=== PATIENT | female | born 1935 | race Caucasian/White ===

== ENCOUNTER → 2017-05-27 | Outpatient (CLI) | payer MEDICARE, OTHER ==
[~2017-05-27] MED LIST: ADV250 IH; ASPI81 PO; ATOR40TA28 PO; CALC-895 PO; ERGO500013 PO; FURO40 PO; ISOS60TA4 PO; MAGN400T6 PO; METO-558 PO; MULT1TAB11 PO; NIFE90TA45 PO; OMEP10CA2 PO; POTA10TA14 PO; ROFL500T PO; SPIR25 PO; TIOT185 IH; TRIA1TAB91 PO
== END | disposition home or self-care (01) ==
LOC: RADPV 09:36
PROVIDERS: ATTEND Internal Medicine
DX: Z13.820 Encounter for screening for osteoporosis (principal); I70.0 Atherosclerosis of aorta; K44.9 Diaphragmatic hernia without obstruction or gangrene; M41.84 Other forms of scoliosis, thoracic region; M54.6 Pain in thoracic spine; M47.898 Other spondylosis, sacral and sacrococcygeal region; M43.16 Spondylolisthesis, lumbar region; M51.86 Other intervertebral disc disorders, lumbar region; M51.87 Other intervertebral disc disorders, lumbosacral region; M85.88 Other specified disorders of bone density and structure, other site
CPT/HCPCS: 71020; 72070; 72100; 77080

== ENCOUNTER 2017-08-05 13:00 | Emergency (ER) | payer MEDICARE, OTHER ==
[~2017-08-05] VITALS: Ht 162.6 cm; Wt 104.5 kg
[2017-08-05 13:13] LABS: GLUCOSE,POINT OF CARE 181 MG/DL (70-110)
[2017-08-05 14:28] LABS: BASOPHILS % (AUTO) 0.7 % (0.0-2.0); HEMATOCRIT 41.8 % (36-46); HEMOGLOBIN 14.1 g/dL (12.0-16.0); LYMPHOCYTES % (AUTO) 24.9 % (22.0-44.0); MEAN CORPUSCULAR HGB CONC 33.7 G/dL (31.0-37.0); MEAN CORPUSCULAR VOLUME 95 fL (80-100); MONOCYTES # (AUTO) 0.8 K/uL (0.1-1.0); MONOCYTES % (AUTO) 10.6 % (2.0-9.0); NEUTROPHILS # (AUTO) 4.8 K/uL (1.8-7.7); NEUTROPHILS % (AUTO) 59.8 % (40.0-70.0); PLATELET COUNT (AUTO) 291 K/uL (150-450); RED CELL DISTRIBUTION WIDTH 14.5 % (11.5-14.5)
[2017-08-05 14:30] LABS: CALCIUM, TOTAL 9.7 mg/dL (8.8-10.5); CREATININE 1.04 mg/dL (0.60-1.30)
[2017-08-05 14:48] LABS: ALBUMIN 3.7 g/dL (3.4-5.0); BILIRUBIN,TOTAL 0.6 mg/dL (0.1-1.0); TOTAL PROTEIN, SERUM 7.2 g/dL (6.4-8.2)
[2017-08-05 15:45] VITALS: BP 134/64
== END 2017-08-05 15:55 | disposition home or self-care (01) ==
LOC: EMS 13:01
DX: L03.116 Cellulitis of left lower limb (principal); E11.9 Type 2 diabetes mellitus without complications; E78.00 Pure hypercholesterolemia, unspecified; I10 Essential (primary) hypertension; Z79.82 Long term (current) use of aspirin
CPT/HCPCS: 82962; 93005; 93970; 99285

== ENCOUNTER → 2017-08-21 | Outpatient (CLI) | payer MEDICARE, OTHER | END | disposition home or self-care (01) | LOC: RADPV 09:19 | PROVIDERS: ATTEND Internal Medicine | DX: R60.0 Localized edema (principal); L03.116 Cellulitis of left lower limb | CPT/HCPCS: 93971 ==

== ENCOUNTER → 2017-08-27 | Outpatient (CLI) | payer MEDICARE, OTHER | END | disposition home or self-care (01) | LOC: RADPV 10:54 | PROVIDERS: ATTEND Internal Medicine | DX: K44.9 Diaphragmatic hernia without obstruction or gangrene (principal); I70.0 Atherosclerosis of aorta | CPT/HCPCS: 71046 ==

== ENCOUNTER → 2017-12-08 | Outpatient (CLI) | payer MEDICARE, OTHER ==
[2017-12-08 15:34] LABS: HEMOGLOBIN A1C 6.8 % (4.5-6.2)
[2017-12-08 16:03] LABS: ALBUMIN 3.7 g/dL (3.4-5.0); BILIRUBIN,TOTAL 0.8 mg/dL (0.1-1.0); CALCIUM, TOTAL 9.7 mg/dL (8.8-10.5); CHOL/HDL RATIO 3.1 (3.9-5.7); CREATININE 1.25 mg/dL (0.60-1.30); POTASSIUM 4.2 mmol/L (3.5-5.1); THYROID STIMULATING HORMONE 1.51 uIU/mL (0.36-3.74); TOTAL PROTEIN, SERUM 7.2 g/dL (6.4-8.2)
[2017-12-09 08:31] LABS: VITAMIN B12 LEVEL 907 pg/mL (211-911)
[2017-12-09 09:12] LABS: FOLATE SERUM > 24.0 ng/mL (5.4-)
== END | disposition home or self-care (01) ==
LOC: LABPV 11:49
PROVIDERS: ATTEND Internal Medicine
DX: E11.69 Type 2 diabetes mellitus with other specified complication (principal); E78.5 Hyperlipidemia, unspecified; R41.3 Other amnesia
CPT/HCPCS: 82043; 82570; 82607; 82746; 83036; 84443

== ENCOUNTER 2017-12-13 17:44 | Inpatient (IN) | payer MEDICARE, OTHER ==
[~2017-12-13] VITALS: Ht 165.1 cm; Wt 101.7 kg
[2017-12-13] MEDS ORDERED: MONT10TA21 PO (18:16)
[2017-12-13] MEDS ORDERED: FEXO-58 PO (18:16)
[2017-12-13] MEDS ORDERED: GLIP5 PO (18:16)
[2017-12-13] MEDS ORDERED: TELM40 PO (18:16)
[2017-12-13] MEDS ORDERED: ALEN70TA48 PO (18:16)
[2017-12-13 18:24] LABS: GLUCOSE,POINT OF CARE 203 MG/DL (70-110)
[2017-12-13] MEDS ORDERED: ADENOSINE 3 MG/ML 2 ML VIAL IVP ONE (18:30)
[2017-12-13] MEDS ORDERED: ASPIRIN 325 MG TABLET PO ONE (18:30)
[2017-12-13 18:31] LABS: BASOPHILS % (AUTO) 0.7 % (0.0-2.0); EOSINOPHILS % (AUTO) 6.5 % (1.0-6.0); HEMATOCRIT 40.7 % (36-46); HEMOGLOBIN 13.8 g/dL (12.0-16.0); LYMPHOCYTES # (AUTO) 4.1 K/uL (1.0-4.8); LYMPHOCYTES % (AUTO) 33.1 % (22.0-44.0); MEAN CORPUSCULAR HEMOGLOBIN 32.3 pg (26.0-34.0); MEAN CORPUSCULAR HGB CONC 33.9 G/dL (31.0-37.0); MEAN CORPUSCULAR VOLUME 95 fL (80-100); MONOCYTES # (AUTO) 1.3 K/uL (0.1-1.0); MONOCYTES % (AUTO) 10.3 % (2.0-9.0); NEUTROPHILS # (AUTO) 6.1 K/uL (1.8-7.7); NEUTROPHILS % (AUTO) 49.4 % (40.0-70.0); PLATELET COUNT (AUTO) 241 K/uL (150-450); RED BLOOD CELL COUNT(AUTO) 4.27 MIL/uL (4.00-5.20); RED CELL DISTRIBUTION WIDTH 14.7 % (11.5-14.5)
[2017-12-13 18:40] LABS: ANION GAP 11 mmol/L (8-16); CARBON DIOXIDE 21 mmol/L (22-29); CHLORIDE 105 mmol/L (98-107); CREATININE 1.18 mg/dL (0.60-1.30); GLOMERULAR FILTR. RATE CALC 44 mL/min (>60); GLUCOSE,RANDOM 197 mg/dL (70-110); POTASSIUM 4.1 mmol/L (3.5-5.1); SODIUM SERUM 137 mmol/L (136-145); UREA NITROGEN, BLOOD 18 mg/dL (7-18)
[2017-12-13 18:45] LABS: ALANINE AMINOTRANSFERASE 33 U/L (12-78); ALBUMIN 3.5 g/dL (3.4-5.0); ALKALINE PHOSPHATASE 87 U/L (46-116); ASPARTATE AMINOTRANSFERASE 23 U/L (15-37); BILIRUBIN,TOTAL 0.5 mg/dL (0.1-1.0); LIPASE 98 U/L (73-393); TOTAL PROTEIN, SERUM 7.1 g/dL (6.4-8.2)
[2017-12-13] MEDS ORDERED: SODIUM CHLORIDE 0.9% 1,000 ML IV ONE (18:45)
[2017-12-13 18:59] LABS: B-TYPE NATRIURETIC PEPTIDE 186 pg/mL (0-100)
[2017-12-13 19:55] LABS: LACTIC ACID 2.3 mmol/L (0.4-2.0)
[2017-12-13] MEDS ORDERED: ONDANSETRON HCL 4 MG/2 ML VIAL IVP PRN ×2 (20:00→20:45)
[2017-12-13] MEDS ORDERED: 0.9% SODIUM CHLORIDE 10 ML SYRINGE IVP PRN ×2 (20:00→20:45)
[2017-12-13] MEDS ORDERED: ACETAMINOPHEN 325 MG TABLET PO PRN ×2 (20:00→20:45)
[2017-12-13] MEDS ORDERED: METOPROLOL TARTRATE 50 MG TABLET PO ONE (20:00)
[2017-12-13] MEDS ORDERED: ALBUTEROL SULFATE 2.5 MG/0.5 ML NEB SOLUTION NEB PRN (20:45)
[2017-12-13] MEDS ORDERED: INSULIN LISPRO 100 UNITS/ML SQ PRN (20:45)
[2017-12-13] MEDS ORDERED: IPRATROPIUM BROMIDE 0.5 MG/2.5 ML NEB SOLUTION NEB PRN (20:45)
[2017-12-13] MEDS ORDERED: MAGNESIUM HYDROXIDE SUSPENSION 30 ML UDCUP PO PRN (20:45)
[2017-12-13] MEDS ORDERED: DEXTROSE 50%-WATER 25 GM/50 ML SYRINGE IVP PRN (20:45)
[2017-12-13] MEDS ORDERED: BISACODYL 10 MG RECTAL RECTAL SUPPOSITORY PR PRN (20:45)
[2017-12-13] MEDS ORDERED: ATORVASTATIN CALCIUM 40 MG TABLET PO SCH (21:00)
[2017-12-13] MEDS: HEPARIN SODIUM,PORCINE 5,000 UNITS/ML VIAL SQ SCH (21:19)
[2017-12-14 08:06] LABS: BASOPHILS % (AUTO) 0.7 % (0.0-2.0); EOSINOPHILS % (AUTO) 7.5 % (1.0-6.0); HEMATOCRIT 37.7 % (36-46); HEMOGLOBIN 12.9 g/dL (12.0-16.0); LYMPHOCYTES # (AUTO) 2.8 K/uL (1.0-4.8); LYMPHOCYTES % (AUTO) 35.5 % (22.0-44.0); MEAN CORPUSCULAR HEMOGLOBIN 32.3 pg (26.0-34.0); MEAN CORPUSCULAR HGB CONC 34.4 G/dL (31.0-37.0); MEAN CORPUSCULAR VOLUME 94 fL (80-100); MONOCYTES # (AUTO) 0.8 K/uL (0.1-1.0); MONOCYTES % (AUTO) 10.6 % (2.0-9.0); NEUTROPHILS # (AUTO) 3.6 K/uL (1.8-7.7); NEUTROPHILS % (AUTO) 45.7 % (40.0-70.0); PLATELET COUNT (AUTO) 221 K/uL (150-450); RED BLOOD CELL COUNT(AUTO) 4.01 MIL/uL (4.00-5.20); RED CELL DISTRIBUTION WIDTH 14.9 % (11.5-14.5)
[2017-12-14 08:09] LABS: GLUCOSE,POINT OF CARE 118 MG/DL (70-110)
[2017-12-14 08:31] LABS: HEMOGLOBIN A1C 7.2 % (4.5-6.2)
[2017-12-14 08:37] LABS: ALBUMIN 3.1 g/dL (3.4-5.0); BILIRUBIN,TOTAL 0.9 mg/dL (0.1-1.0); CALCIUM, TOTAL 8.5 mg/dL (8.8-10.5); CHOL/HDL RATIO 2.7 (3.9-5.7); CREATININE 0.95 mg/dL (0.60-1.30); FREE T4 (FREE THYROXINE) 1.12 ng/dL (0.76-1.46); MAGNESIUM 1.6 mg/dL (1.80-2.40); PHOSPHORUS 2.5 mg/dL (2.5-4.9); POTASSIUM 3.8 mmol/L (3.5-5.1); THYROID STIMULATING HORMONE 2.44 uIU/mL (0.36-3.74); TOTAL PROTEIN, SERUM 6.2 g/dL (6.4-8.2)
[2017-12-14] MEDS ORDERED: MONTELUKAST SODIUM 10 MG TABLET PO SCH (09:00)
[2017-12-14] MEDS ORDERED: TELMISARTAN 20 MG TABLET PO SCH (09:00)
[2017-12-14] MEDS ORDERED: NIFEdipine 90 MG ER TABLET PO SCH (09:00)
[2017-12-14] MEDS ORDERED: METOPROLOL SUCCINATE 50 MG ER TABLET PO SCH (09:00)
[2017-12-14] MEDS ORDERED: FEXOFENADINE HCL 60 MG TABLET PO SCH (09:00)
[2017-12-14] MEDS ORDERED: ROFLUMILAST 500 MCG TABLET PO SCH (09:00)
[2017-12-14] MEDS ORDERED: TIOTROPIUM BROMIDE 18 MCG/INH HANDIHALER [5] IH SCH (09:00)
[2017-12-14] MEDS ORDERED: ISOSORBIDE MONONITRATE 60 MG ER TABLET PO SCH (09:00)
[2017-12-14] MEDS ORDERED: ASPIRIN 81 MG CHEWABLE TABLET PO SCH (09:00)
[2017-12-14] MEDS ORDERED: MULTIVITAMINS WITH MINERALS, THERAPEUTIC TABLET PO SCH (09:00)
[2017-12-14] MEDS ORDERED: OMEP20 PO (10:44)
[2017-12-14] MEDS ORDERED: TELMISARTAN 40 MG TABLET PO SCH (10:45)
[2017-12-14 11:36] VITALS: BP 112/63
[2017-12-14] MEDS: FLUTICASONE/SALMETEROL 250 MCG-50 MCG/INH DISKUS INHALER [28] IH SCH ×2 (12:17→12:27)
[2017-12-14] MEDS: OMEPRAZOLE 20 MG CAPSULE PO SCH ×2 (12:19→12:28)
[2017-12-14] MEDS: HEPARIN SODIUM,PORCINE 5,000 UNITS/ML VIAL SQ SCH (12:20)
[2017-12-14] MEDS ORDERED: MAGNESIUM SULFATE 2 GM in DEXTROSE 5%-WATER 50 ML IV PRN (13:15)
[2017-12-14] MEDS ORDERED: MAGNESIUM SULFATE 4 GM/WATER 100 ML IV PRN (13:15)
[2017-12-14] MEDS ORDERED: MAGNESIUM OXIDE 400 MG TABLET PO PRN (13:15)
[2017-12-15 07:59] LABS: GLUCOMETER DEV NAME(LOC) 5S 1M; GLUCOSE,POINT OF CARE 128 MG/DL (70-110)
[2017-12-20] MEDS ORDERED: ALENDRONATE SODIUM 70 MG TABLET PO SCH (06:30)
== END 2017-12-14 16:35 | disposition home or self-care (01) | DRG 309 ==
LOC: EMS 17:46 → 5S 12-14 08:39
PROVIDERS: ADMIT Internal Medicine; ATTEND Internal Medicine
DX: I47.1 Supraventricular tachycardia (principal); R65.10 Systemic inflammatory response syndrome (SIRS) of non-infectious origin without acute organ dysfunction; L03.116 Cellulitis of left lower limb; I10 Essential (primary) hypertension; E78.00 Pure hypercholesterolemia, unspecified; E11.65 Type 2 diabetes mellitus with hyperglycemia; M19.91 Primary osteoarthritis, unspecified site; E78.5 Hyperlipidemia, unspecified; I25.10 Atherosclerotic heart disease of native coronary artery without angina pectoris; J44.9 Chronic obstructive pulmonary disease, unspecified; K21.9 Gastro-esophageal reflux disease without esophagitis; M81.0 Age-related osteoporosis without current pathological fracture
CPT/HCPCS: 83036; 83605; 83735; 84100; 84145; 84439; 84443; 93005; 93306; 96374; 99291; J1644; J7030

== ENCOUNTER 2017-12-15 13:58 | Inpatient (IN) | payer MEDICARE, OTHER ==
[~2017-12-15] VITALS: Ht 165.1 cm; Wt 105.3 kg
[~2017-12-15 13:58] MED LIST changes: +ALEN70TA48 PO; -CALC-895 PO; -ERGO500013 PO; +FEXO-58 PO; -FURO40 PO; +GLIP5 PO; -ISOS60TA4 PO; -MAGN400T6 PO; +MONT10TA21 PO; -OMEP10CA2 PO; +OMEP20 PO; -POTA10TA14 PO; +TELM40 PO; -TRIA1TAB91 PO
[2017-12-15 14:26] LABS: BASOPHILS % (AUTO) 0.8 % (0.0-2.0); EOSINOPHILS % (AUTO) 5.8 % (1.0-6.0); HEMATOCRIT 41.1 % (36-46); HEMOGLOBIN 14.3 g/dL (12.0-16.0); LYMPHOCYTES # (AUTO) 2.1 K/uL (1.0-4.8); LYMPHOCYTES % (AUTO) 28.5 % (22.0-44.0); MEAN CORPUSCULAR HEMOGLOBIN 32.4 pg (26.0-34.0); MEAN CORPUSCULAR HGB CONC 34.7 G/dL (31.0-37.0); MEAN CORPUSCULAR VOLUME 94 fL (80-100); MONOCYTES # (AUTO) 0.9 K/uL (0.1-1.0); MONOCYTES % (AUTO) 11.8 % (2.0-9.0); NEUTROPHILS % (AUTO) 53.1 % (40.0-70.0); PLATELET COUNT (AUTO) 238 K/uL (150-450); RED CELL DISTRIBUTION WIDTH 14.7 % (11.5-14.5)
[2017-12-15 14:33] LABS: GLUCOSE,POINT OF CARE 181 MG/DL (70-110)
[2017-12-15 14:40] LABS: PROTHROMBIN TIME 10.4 SEC (9.4-11.6)
[2017-12-15 14:41] LABS: ANION GAP 11 mmol/L (8-16); CARBON DIOXIDE 22 mmol/L (22-29); CHLORIDE 105 mmol/L (98-107); CREATININE 0.99 mg/dL (0.60-1.30); GLOMERULAR FILTR. RATE CALC 54 mL/min (>60); GLUCOSE,RANDOM 195 mg/dL (70-110); POTASSIUM 3.7 mmol/L (3.5-5.1); SODIUM SERUM 138 mmol/L (136-145); UREA NITROGEN, BLOOD 13 mg/dL (7-18)
[2017-12-15] MEDS ORDERED: DILTIAZEM HCL 5 MG/ML 5 ML VIAL IVP ONE (14:45)
[2017-12-15] MEDS ORDERED: ASPIRIN 81 MG CHEWABLE TABLET PO ONE (14:45)
[2017-12-15] MEDS ORDERED: DILTIAZEM HCL 125 MG in DEXTROSE 5%-WATER 100 ML IV PRN (14:45)
[2017-12-15 15:05] LABS: ALANINE AMINOTRANSFERASE 34 U/L (12-78); ALBUMIN 3.3 g/dL (3.4-5.0); ALKALINE PHOSPHATASE 77 U/L (46-116); ASPARTATE AMINOTRANSFERASE 23 U/L (15-37); BILIRUBIN,TOTAL 0.8 mg/dL (0.1-1.0); CREATINE KINASE MB 0.8 ng/mL (0-5); CREATINE KINASE, TOTAL 81 U/L (26-192); TOTAL PROTEIN, SERUM 6.9 g/dL (6.4-8.2)
[2017-12-15 15:11] LABS: B-TYPE NATRIURETIC PEPTIDE 162 pg/mL (0-100)
[2017-12-15] MEDS ORDERED: DEXTROSE 50%-WATER 25 GM/50 ML SYRINGE IVP PRN (15:15)
[2017-12-15] MEDS ORDERED: MAGNESIUM HYDROXIDE SUSPENSION 30 ML UDCUP PO PRN (15:15)
[2017-12-15] MEDS ORDERED: ALBUTEROL SULFATE 2.5 MG/0.5 ML NEB SOLUTION NEB PRN (15:15)
[2017-12-15] MEDS ORDERED: INSULIN LISPRO 100 UNITS/ML SQ PRN (15:15)
[2017-12-15] MEDS ORDERED: OxyCODONE HCL/ACETAMINOPHEN 5-325 MG TABLET PO PRN (15:15)
[2017-12-15] MEDS ORDERED: MAGNESIUM SULFATE 4 GM/WATER 100 ML IV PRN (15:15)
[2017-12-15] MEDS ORDERED: POTASSIUM CHLORIDE 20 MEQ ER TABLET PO PRN (15:15)
[2017-12-15] MEDS ORDERED: ACETAMINOPHEN 325 MG TABLET PO PRN (15:15)
[2017-12-15] MEDS ORDERED: POTASSIUM CHL 10 MEQ/WATER 50 ML IV PRN (15:15)
[2017-12-15] MEDS ORDERED: MAGNESIUM SULFATE 2 GM/WATER 50 ML IV PRN (15:15)
[2017-12-15] MEDS ORDERED: SODIUM CHLORIDE 0.9% 500 ML IV ONE ×2 (15:18→15:30)
[2017-12-15] MEDS: HEPARIN SODIUM,PORCINE 5,000 UNITS/ML VIAL SQ SCH ×2 (16:13→22:48)
[2017-12-15 17:15] LABS: APPEARANCE,URINE CLOUDY (CLEAR); BILIRUBIN,URINE NEGATIVE (NEGATIVE); GLUCOSE, URINE (UA) NEGATIVE (NEGATIVE); KETONES,URINE NEGATIVE (NEGATIVE); LEUKOCYTE ESTERASE ,URINE SMALL (NEGATIVE); NITRATE,URINE NEGATIVE (NEGATIVE); OCCULT BLOOD,URINE NEGATIVE (NEGATIVE); PROTEIN,URINE NEGATIVE (NEGATIVE)
[2017-12-15] MEDS ORDERED: DILTIAZEM HCL 125 MG in DEXTROSE 5%-WATER 100 ML IV SCH (17:15)
[2017-12-15 17:24] LABS: BACTERIA,URINE Rare /HPF (None Seen); RBC,URINE 0-2 /HPF (0-2); SQUAMOUS EPITHELIAL CELL,UR Few /LPF (None Seen)
[2017-12-15] MEDS: DOCUSATE SODIUM 100 MG CAPSULE PO SCH (21:00)
[2017-12-15 21:08] LABS: GLUCOSE,POINT OF CARE 90 MG/DL (70-110)
[2017-12-15 22:31] VITALS: BP 151/74
[2017-12-15] MEDS: MAGNESIUM OXIDE 400 MG TABLET PO PRN (22:48)
[2017-12-16] VITALS (8 sets, daily range): BP systolic 138–158; BP diastolic 58–75
[2017-12-16 07:38] LABS: GLUCOMETER DEV NAME(LOC) 5N 1P; GLUCOSE,POINT OF CARE 115 MG/DL (70-110)
[2017-12-16] MEDS: HEPARIN SODIUM,PORCINE 5,000 UNITS/ML VIAL SQ SCH ×3 (08:06→23:53)
[2017-12-16] MEDS: ASPIRIN 81 MG CHEWABLE TABLET PO SCH (08:06)
[2017-12-16] MEDS: PANTOPRAZOLE SODIUM 40 MG DR TABLET PO SCH (08:06)
[2017-12-16] MEDS: DOCUSATE SODIUM 100 MG CAPSULE PO SCH ×2 (09:00→20:40)
[2017-12-16] MEDS ORDERED: SESTAMIBI TC99M/UD ISOTOPE 1 EA INJ INJ ONE ×2 (10:35→14:05)
[2017-12-16] MEDS ORDERED: REGADENOSON 0.4 MG/5 ML PF SYRINGE IVP ONE ×2 (12:00→14:15)
[2017-12-16] MEDS: METOPROLOL TARTRATE 25 MG TABLET PO SCH ×2 (17:04→20:37)
[2017-12-16] MEDS: MAGNESIUM OXIDE 400 MG TABLET PO PRN (18:15)
[2017-12-17] VITALS (14 sets, daily range): BP systolic 116–181; BP diastolic 60–84
[2017-12-17 07:28] LABS: GLUCOMETER DEV NAME(LOC) 5N 1P; GLUCOSE,POINT OF CARE 132 MG/DL (70-110)
[2017-12-17 07:28] LABS: GLUCOMETER DEV NAME(LOC) 5N 1P; GLUCOSE,POINT OF CARE 119 MG/DL (70-110)
[2017-12-17 07:28] LABS: GLUCOMETER DEV NAME(LOC) 5N 1P; GLUCOSE,POINT OF CARE 136 MG/DL (70-110)
[2017-12-17 07:28] LABS: GLUCOMETER DEV NAME(LOC) 5N 1P; GLUCOSE,POINT OF CARE 123 MG/DL (70-110)
[2017-12-17] MEDS: METOPROLOL TARTRATE 25 MG TABLET PO SCH ×2 (08:30→20:30)
[2017-12-17] MEDS: PANTOPRAZOLE SODIUM 40 MG DR TABLET PO SCH (08:30)
[2017-12-17] MEDS: HEPARIN SODIUM,PORCINE 5,000 UNITS/ML VIAL SQ SCH ×3 (08:30→23:46)
[2017-12-17] MEDS: ASPIRIN 81 MG CHEWABLE TABLET PO SCH (08:30)
[2017-12-17] MEDS: DOCUSATE SODIUM 100 MG CAPSULE PO SCH ×3 (08:30→21:00)
[2017-12-17] MEDS ORDERED: HEPARIN SODIUM 1000 UNITS/NS 1,000 ML ONE (10:41)
[2017-12-17] MEDS ORDERED: SODIUM BICARBONATE 50 MEQ/50 ML VIAL ONE (10:41)
[2017-12-17] MEDS ORDERED: IOHEXOL 300 MG/ML 150 ML VIAL ONE (10:41)
[2017-12-17] MEDS ORDERED: LIDOCAINE HCL/PF 1% 30 ML VIAL ONE (10:41)
[2017-12-17] MEDS ORDERED: FentaNYL CITRATE-PF 100 MCG/2 ML VIAL ONE (11:33)
[2017-12-17] MEDS ORDERED: MIDAZOLAM HCL 2 MG/2 ML VIAL ONE (11:33)
[2017-12-17] MEDS ORDERED: HEPARIN SODIUM 1000 UNITS/NS 1,000 ML IARTER ONE (11:36)
[2017-12-17] MEDS ORDERED: FentaNYL CITRATE-PF 100 MCG/2 ML VIAL IVP ONE (11:45)
[2017-12-17] MEDS ORDERED: LIDOCAINE 1% 30 ML/SOD BICARB 8.4% 4 ML SQ ONE (11:45)
[2017-12-17] MEDS ORDERED: IOHEXOL 300 MG/ML 150 ML VIAL IARTER ONE (11:45)
[2017-12-17] MEDS ORDERED: MIDAZOLAM HCL 2 MG/2 ML VIAL IVP ONE (11:45)
[2017-12-17] MEDS: APIXABAN 5 MG TABLET PO SCH (20:30)
[2017-12-18 00:30] VITALS: BP 155/87
[2017-12-18 04:12] VITALS: BP 152/70
[2017-12-18 07:12] VITALS: BP 155/70
[2017-12-18] MEDS ORDERED: REGADENOSON 0.4 MG/5 ML PF SYRINGE IVP ONE (07:44)
[2017-12-18] MEDS: METOPROLOL TARTRATE 25 MG TABLET PO SCH (08:01)
[2017-12-18] MEDS: ASPIRIN 81 MG CHEWABLE TABLET PO SCH (08:01)
[2017-12-18] MEDS: APIXABAN 5 MG TABLET PO SCH (08:01)
[2017-12-18] MEDS: HEPARIN SODIUM,PORCINE 5,000 UNITS/ML VIAL SQ SCH (08:01)
[2017-12-18] MEDS: PANTOPRAZOLE SODIUM 40 MG DR TABLET PO SCH (08:01)
[2017-12-18] MEDS: DOCUSATE SODIUM 100 MG CAPSULE PO SCH (08:02)
[2017-12-18 08:18] LABS: CALCIUM, TOTAL 8.7 mg/dL (8.8-10.5); CREATININE 0.98 mg/dL (0.60-1.30); POTASSIUM 3.7 mmol/L (3.5-5.1)
[2017-12-18 08:24] LABS: BASOPHILS % (AUTO) 0.9 % (0.0-2.0); EOSINOPHILS % (AUTO) 6.3 % (1.0-6.0); HEMATOCRIT 37.2 % (36-46); HEMOGLOBIN 12.7 g/dL (12.0-16.0); LYMPHOCYTES # (AUTO) 2.1 K/uL (1.0-4.8); LYMPHOCYTES % (AUTO) 26.5 % (22.0-44.0); MEAN CORPUSCULAR HEMOGLOBIN 32.3 pg (26.0-34.0); MEAN CORPUSCULAR HGB CONC 34.2 G/dL (31.0-37.0); MEAN CORPUSCULAR VOLUME 94 fL (80-100); MONOCYTES % (AUTO) 13.4 % (2.0-9.0); NEUTROPHILS # (AUTO) 4.1 K/uL (1.8-7.7); NEUTROPHILS % (AUTO) 52.9 % (40.0-70.0); PLATELET COUNT (AUTO) 228 K/uL (150-450); RED BLOOD CELL COUNT(AUTO) 3.94 MIL/uL (4.00-5.20); RED CELL DISTRIBUTION WIDTH 14.3 % (11.5-14.5)
[2017-12-18 10:18] LABS: GLUCOMETER DEV NAME(LOC) 5N 1P; GLUCOSE,POINT OF CARE 101 MG/DL (70-110)
[2017-12-18 10:19] LABS: GLUCOMETER DEV NAME(LOC) 5N 1P; GLUCOSE,POINT OF CARE 138 MG/DL (70-110)
[2017-12-18 10:19] LABS: GLUCOMETER DEV NAME(LOC) 5N 1P; GLUCOSE,POINT OF CARE 128 MG/DL (70-110)
[2017-12-18 11:55] VITALS: BP 146/63
[2017-12-18 11:59] LABS: GLUCOMETER DEV NAME(LOC) 5N 2S; GLUCOSE,POINT OF CARE 116 MG/DL (70-110)
[2017-12-19 02:44] LABS: GLUCOMETER DEV NAME(LOC) 5N 1P; GLUCOSE,POINT OF CARE 109 MG/DL (70-110)
== END 2017-12-18 12:40 | disposition home or self-care (01) | DRG 287 ==
LOC: EMS 13:59 → 5N 21:00
PROVIDERS: ADMIT Internal Medicine; ATTEND Internal Medicine
PROC: 4A023N7 Measurement of Cardiac Sampling and Pressure, Left Heart, Percutaneous Approach (ICD-10-PCS; principal; 2017-12-17)
PROC: B2111ZZ Fluoroscopy of Multiple Coronary Arteries using Low Osmolar Contrast (ICD-10-PCS; 2017-12-17)
PROC: B2151ZZ Fluoroscopy of Left Heart using Low Osmolar Contrast (ICD-10-PCS; 2017-12-17)
PROC: B41J1ZZ Fluoroscopy of Other Lower Arteries using Low Osmolar Contrast (ICD-10-PCS; 2017-12-17)
DX: I47.1 Supraventricular tachycardia (principal); I48.91 Unspecified atrial fibrillation; I25.119 Atherosclerotic heart disease of native coronary artery with unspecified angina pectoris; I49.5 Sick sinus syndrome; E66.9 Obesity, unspecified; E11.9 Type 2 diabetes mellitus without complications; I10 Essential (primary) hypertension; E78.5 Hyperlipidemia, unspecified; K21.9 Gastro-esophageal reflux disease without esophagitis; M19.90 Unspecified osteoarthritis, unspecified site; E78.00 Pure hypercholesterolemia, unspecified; J45.909 Unspecified asthma, uncomplicated; Z79.82 Long term (current) use of aspirin; Z68.38 Body mass index [BMI] 38.0-38.9, adult
CPT/HCPCS: 78452; 83735; 87081; 87086; 93005; 93017; 99291; A9500; J1644; J2250; J2785; J3010; J3490; J7040; J7060; Q9967

== ENCOUNTER 2017-12-22 08:49 | Inpatient (IN) | payer MEDICARE, OTHER ==
[~2017-12-22] VITALS: Ht 165.1 cm; Wt 100.5 kg
[~2017-12-22 08:49] MED LIST changes: -ALEN70TA48 PO; -ASPI81 PO; -FEXO-58 PO; -METO-558 PO; -MONT10TA21 PO; -NIFE90TA45 PO; -SPIR25 PO; -TELM40 PO
[2017-12-22] MEDS ORDERED: METO25 PO (09:04)
[2017-12-22] MEDS ORDERED: ADV250 IH (09:04)
[2017-12-22] MEDS ORDERED: APIX5TAB PO (09:04)
[2017-12-22] MEDS ORDERED: DILTIAZEM HCL 5 MG/ML 5 ML VIAL IVP ONE (09:15)
[2017-12-22 09:19] LABS: BASOPHILS % (AUTO) 0.6 % (0.0-2.0); EOSINOPHILS % (AUTO) 4.2 % (1.0-6.0); HEMATOCRIT 41.2 % (36-46); LYMPHOCYTES % (AUTO) 22.9 % (22.0-44.0); MEAN CORPUSCULAR VOLUME 94 fL (80-100); MONOCYTES % (AUTO) 11.5 % (2.0-9.0); NEUTROPHILS # (AUTO) 5.2 K/uL (1.8-7.7); NEUTROPHILS % (AUTO) 60.8 % (40.0-70.0); PLATELET COUNT (AUTO) 258 K/uL (150-450); RED BLOOD CELL COUNT(AUTO) 4.37 MIL/uL (4.00-5.20); RED CELL DISTRIBUTION WIDTH 14.7 % (11.5-14.5)
[2017-12-22 09:24] LABS: GLUCOSE,POINT OF CARE 115 MG/DL (70-110)
[2017-12-22 09:30] LABS: INR 1.1 (0.9-1.1); PROTHROMBIN TIME 11.4 SEC (9.4-11.6)
[2017-12-22] MEDS ORDERED: DILTIAZEM HCL 125 MG in DEXTROSE 5%-WATER 100 ML IV PRN (09:30)
[2017-12-22 09:39] LABS: B-TYPE NATRIURETIC PEPTIDE 90 pg/mL (0-100)
[2017-12-22 10:30] LABS: APPEARANCE,URINE CLEAR (CLEAR); BILIRUBIN,URINE NEGATIVE (NEGATIVE); GLUCOSE, URINE (UA) NEGATIVE (NEGATIVE); KETONES,URINE TRACE mg/dL (NEGATIVE); LEUKOCYTE ESTERASE ,URINE SMALL (NEGATIVE); NITRATE,URINE NEGATIVE (NEGATIVE); OCCULT BLOOD,URINE TRACE (NEGATIVE); PROTEIN,URINE NEGATIVE (NEGATIVE); UROBILINOGEN,URINE 0.2 mg/dL (<=1.0)
[2017-12-22 10:37] LABS: ANION GAP 16 mmol/L (8-16); CALCIUM, TOTAL 9.2 mg/dL (8.8-10.5); CARBON DIOXIDE 19 mmol/L (22-29); CHLORIDE 107 mmol/L (98-107); CREATININE 1.02 mg/dL (0.60-1.30); GLOMERULAR FILTR. RATE CALC 52 mL/min (>60); GLUCOSE,RANDOM 124 mg/dL (70-110); POTASSIUM 3.5 mmol/L (3.5-5.1); SODIUM SERUM 142 mmol/L (136-145); UREA NITROGEN, BLOOD 19 mg/dL (7-18)
[2017-12-22 10:58] LABS: RBC,URINE 0-2 /HPF (0-2)
[2017-12-22 10:59] LABS: BACTERIA,URINE Rare /HPF (None Seen); SQUAMOUS EPITHELIAL CELL,UR Moderate /LPF (None Seen)
[2017-12-22 11:03] LABS: ALANINE AMINOTRANSFERASE 40 U/L (12-78); ALBUMIN 3.6 g/dL (3.4-5.0); ALKALINE PHOSPHATASE 74 U/L (46-116); ASPARTATE AMINOTRANSFERASE 27 U/L (15-37); CREATINE KINASE MB 1.1 ng/mL (0-5); CREATINE KINASE, TOTAL 81 U/L (26-192)
[2017-12-22] MEDS ORDERED: DIGOXIN 250 MCG/ML 2 ML AMP IVP ONE ×2 (11:15→11:30)
[2017-12-22] MEDS ORDERED: ASPIRIN 81 MG CHEWABLE TABLET PO ONE (11:30)
[2017-12-22] MEDS ORDERED: 0.9% SODIUM CHLORIDE 10 ML SYRINGE IVP PRN (13:15)
[2017-12-22] MEDS ORDERED: ACETAMINOPHEN 325 MG TABLET PO PRN (13:15)
[2017-12-22 16:14] VITALS: BP 153/68
[2017-12-22] MEDS ORDERED: DEXTROSE 50%-WATER 25 GM/50 ML SYRINGE IVP PRN (17:15)
[2017-12-22] MEDS ORDERED: INSULIN LISPRO 100 UNITS/ML SQ PRN (17:15)
[2017-12-22 19:52] VITALS: BP 143/54
[2017-12-22] MEDS: APIXABAN 5 MG TABLET PO SCH (20:02)
[2017-12-22] MEDS: AMIODARONE HCL 200 MG TABLET PO SCH (20:02)
[2017-12-22] MEDS: METOPROLOL TARTRATE 25 MG TABLET PO SCH (20:03)
[2017-12-22] MEDS: OMEPRAZOLE 20 MG CAPSULE PO SCH (20:03)
[2017-12-22] MEDS: ATORVASTATIN CALCIUM 40 MG TABLET PO SCH (20:03)
[2017-12-23] VITALS (7 sets, daily range): BP systolic 139–147; BP diastolic 60–72
[2017-12-23 06:14] LABS: BASOPHILS % (AUTO) 0.6 % (0.0-2.0); HEMATOCRIT 38.9 % (36-46); HEMOGLOBIN 13.4 g/dL (12.0-16.0); LYMPHOCYTES # (AUTO) 2.3 K/uL (1.0-4.8); MEAN CORPUSCULAR HEMOGLOBIN 32.6 pg (26.0-34.0); MEAN CORPUSCULAR HGB CONC 34.5 G/dL (31.0-37.0); MEAN CORPUSCULAR VOLUME 94 fL (80-100); MONOCYTES % (AUTO) 11.6 % (2.0-9.0); NEUTROPHILS # (AUTO) 5.1 K/uL (1.8-7.7); NEUTROPHILS % (AUTO) 56.8 % (40.0-70.0); PLATELET COUNT (AUTO) 274 K/uL (150-450); RED BLOOD CELL COUNT(AUTO) 4.12 MIL/uL (4.00-5.20); RED CELL DISTRIBUTION WIDTH 14.9 % (11.5-14.5)
[2017-12-23 06:25] LABS: ALBUMIN 3.3 g/dL (3.4-5.0); BILIRUBIN,TOTAL 1.1 mg/dL (0.1-1.0); CALCIUM, TOTAL 8.5 mg/dL (8.8-10.5); CREATININE 0.95 mg/dL (0.60-1.30); POTASSIUM 3.7 mmol/L (3.5-5.1); TOTAL PROTEIN, SERUM 6.4 g/dL (6.4-8.2)
[2017-12-23] MEDS ORDERED: GlipiZIDE 5 MG TABLET PO SCH (06:30)
[2017-12-23] MEDS: METOPROLOL TARTRATE 25 MG TABLET PO SCH ×2 (07:40→20:10)
[2017-12-23] MEDS: OMEPRAZOLE 20 MG CAPSULE PO SCH ×2 (07:40→20:10)
[2017-12-23] MEDS: APIXABAN 5 MG TABLET PO SCH ×2 (07:41→20:10)
[2017-12-23] MEDS: TIOTROPIUM BROMIDE 18 MCG/INH HANDIHALER [5] IH SCH (07:41)
[2017-12-23] MEDS: ROFLUMILAST 500 MCG TABLET PO SCH (07:41)
[2017-12-23] MEDS: AMIODARONE HCL 200 MG TABLET PO SCH ×2 (07:41→20:10)
[2017-12-23] MEDS: MULTIVITAMINS WITH MINERALS, THERAPEUTIC TABLET PO SCH (07:41)
[2017-12-23 13:56] LABS: GLUCOMETER DEV NAME(LOC) 5S 2Q; GLUCOSE,POINT OF CARE 96 MG/DL (70-110)
[2017-12-23 13:56] LABS: GLUCOMETER DEV NAME(LOC) 5S 2Q; GLUCOSE,POINT OF CARE 100 MG/DL (70-110)
[2017-12-23 13:57] LABS: GLUCOMETER DEV NAME(LOC) 5S 2Q; GLUCOSE,POINT OF CARE 87 MG/DL (70-110)
[2017-12-23 19:48] LABS: GLUCOMETER DEV NAME(LOC) 5S 2Q; GLUCOSE,POINT OF CARE 90 MG/DL (70-110)
[2017-12-23] MEDS: ATORVASTATIN CALCIUM 40 MG TABLET PO SCH (20:10)
[2017-12-23 20:49] LABS: GLUCOMETER DEV NAME(LOC) 5S 2Q; GLUCOSE,POINT OF CARE 138 MG/DL (70-110)
[2017-12-23 23:05] LABS: GLUCOMETER DEV NAME(LOC) 5S 1M; GLUCOSE,POINT OF CARE 99 MG/DL (70-110)
[2017-12-24 04:19] VITALS: BP 140/68
[2017-12-24 06:59] VITALS: BP 144/67
[2017-12-24] MEDS: AMIODARONE HCL 200 MG TABLET PO SCH (08:50)
[2017-12-24] MEDS: METOPROLOL TARTRATE 25 MG TABLET PO SCH (08:53)
[2017-12-24] MEDS: ROFLUMILAST 500 MCG TABLET PO SCH (08:53)
[2017-12-24] MEDS: MULTIVITAMINS WITH MINERALS, THERAPEUTIC TABLET PO SCH (08:53)
[2017-12-24] MEDS: APIXABAN 5 MG TABLET PO SCH (08:53)
[2017-12-24] MEDS: OMEPRAZOLE 20 MG CAPSULE PO SCH (08:53)
[2017-12-24] MEDS: TIOTROPIUM BROMIDE 18 MCG/INH HANDIHALER [5] IH SCH (09:09)
[2017-12-24 11:18] VITALS: BP 141/58
[2017-12-24 15:18] VITALS: BP 166/63
[2017-12-24] MEDS ORDERED: IPRATROPIUM BROMIDE 0.5 MG/2.5 ML NEB SOLUTION NEB PRN (17:30)
[2017-12-24] MEDS ORDERED: ALBUTEROL SULFATE 2.5 MG/0.5 ML NEB SOLUTION NEB PRN (17:30)
[2017-12-24] MEDS ORDERED: HYDROCODONE/ACETAMINOPHEN 5-325 MG TABLET PO PRN (17:30)
[2017-12-24] MEDS ORDERED: MAGNESIUM HYDROXIDE SUSPENSION 30 ML UDCUP PO PRN (17:30)
[2017-12-24] MEDS ORDERED: BISACODYL 10 MG RECTAL RECTAL SUPPOSITORY PR PRN (17:30)
[2017-12-24] MEDS ORDERED: MORPHINE SULFATE 2 MG/ML SYRINGE IVP PRN (17:30)
[2017-12-24] MEDS ORDERED: ZOLPIDEM TARTRATE 5 MG TABLET PO PRN (17:30)
[2017-12-24] MEDS ORDERED: ACETAMINOPHEN 325 MG TABLET PO PRN (17:30)
[2017-12-24] MEDS ORDERED: ONDANSETRON HCL 4 MG/2 ML VIAL IVP PRN (17:30)
[2017-12-24] MEDS ORDERED: AMIO200T44 PO (18:14)
[2017-12-24 19:34] LABS: GLUCOMETER DEV NAME(LOC) 5S 2Q; GLUCOSE,POINT OF CARE 99 MG/DL (70-110)
[2017-12-24] MEDS ORDERED: DOCUSATE SODIUM 100 MG CAPSULE PO SCH (21:00)
[2017-12-24 22:04] LABS: GLUCOMETER DEV NAME(LOC) 5S 1M; GLUCOSE,POINT OF CARE 104 MG/DL (70-110)
[2017-12-24 22:05] LABS: GLUCOMETER DEV NAME(LOC) 5N 1P; GLUCOSE,POINT OF CARE 121 MG/DL (70-110)
[2017-12-25] MEDS ORDERED: PANTOPRAZOLE SODIUM 40 MG/VIAL IVP SCH (09:00)
== END 2017-12-24 18:55 | disposition home or self-care (01) | DRG 310 ==
LOC: EMS 08:51 → 5S 15:27
PROVIDERS: ADMIT Hospitalist; ATTEND Hospitalist
DX: I48.91 Unspecified atrial fibrillation (principal); I10 Essential (primary) hypertension; E78.5 Hyperlipidemia, unspecified; I47.1 Supraventricular tachycardia; E78.00 Pure hypercholesterolemia, unspecified; M19.90 Unspecified osteoarthritis, unspecified site; E11.9 Type 2 diabetes mellitus without complications; Z83.3 Family history of diabetes mellitus; Z82.49 Family history of ischemic heart disease and other diseases of the circulatory system; Z79.82 Long term (current) use of aspirin; Z79.899 Other long term (current) drug therapy; Z79.84 Long term (current) use of oral hypoglycemic drugs; Z79.01 Long term (current) use of anticoagulants
CPT/HCPCS: 13122; 87081; 87086; 93005; 96365; 99291; J1160; J3490; J7060

== ENCOUNTER 2017-12-24 23:26 | Emergency (ER) | payer MEDICARE, OTHER ==
[~2017-12-24] VITALS: Ht 165.1 cm; Wt 97.7 kg
[~2017-12-24 23:26] MED LIST changes: +AMIO200T44 PO; +APIX5TAB PO; +METO25 PO
[2017-12-24 23:43] LABS: GLUCOSE,POINT OF CARE 146 MG/DL (70-110)
[2017-12-25 00:08] LABS: BASOPHILS % (AUTO) 0.8 % (0.0-2.0); EOSINOPHILS % (AUTO) 2.5 % (1.0-6.0); HEMATOCRIT 41.6 % (36-46); HEMOGLOBIN 13.9 g/dL (12.0-16.0); MEAN CORPUSCULAR HEMOGLOBIN 31.8 pg (26.0-34.0); MEAN CORPUSCULAR HGB CONC 33.5 G/dL (31.0-37.0); MEAN CORPUSCULAR VOLUME 95 fL (80-100); MONOCYTES # (AUTO) 1.2 K/uL (0.1-1.0); MONOCYTES % (AUTO) 11.2 % (2.0-9.0); NEUTROPHILS # (AUTO) 6.6 K/uL (1.8-7.7); NEUTROPHILS % (AUTO) 58.5 % (40.0-70.0); PLATELET COUNT (AUTO) 310 K/uL (150-450); RED BLOOD CELL COUNT(AUTO) 4.39 MIL/uL (4.00-5.20); RED CELL DISTRIBUTION WIDTH 14.7 % (11.5-14.5)
[2017-12-25 00:16] LABS: ANION GAP 11 mmol/L (8-16); CALCIUM, TOTAL 9.6 mg/dL (8.8-10.5); CARBON DIOXIDE 22 mmol/L (22-29); CHLORIDE 105 mmol/L (98-107); CREATININE 1.39 mg/dL (0.60-1.30); GLOMERULAR FILTR. RATE CALC 36 mL/min (>60); GLUCOSE,RANDOM 146 mg/dL (70-110); POTASSIUM 3.6 mmol/L (3.5-5.1); SODIUM SERUM 138 mmol/L (136-145); UREA NITROGEN, BLOOD 24 mg/dL (7-18)
[2017-12-25 00:37] LABS: B-TYPE NATRIURETIC PEPTIDE 83 pg/mL (0-100)
[2017-12-25 00:41] LABS: ALANINE AMINOTRANSFERASE 40 U/L (12-78); ALBUMIN 3.7 g/dL (3.4-5.0); ALKALINE PHOSPHATASE 72 U/L (46-116); ASPARTATE AMINOTRANSFERASE 29 U/L (15-37); BILIRUBIN,TOTAL 0.8 mg/dL (0.1-1.0); CREATINE KINASE MB 1.9 ng/mL (0-5); CREATINE KINASE, TOTAL 136 U/L (26-192); TOTAL PROTEIN, SERUM 7.1 g/dL (6.4-8.2)
[2017-12-25 03:44] VITALS: BP 125/56
== END 2017-12-25 03:46 | disposition home or self-care (01) ==
LOC: EMS 23:27
DX: I48.91 Unspecified atrial fibrillation (principal); I10 Essential (primary) hypertension; E78.00 Pure hypercholesterolemia, unspecified; E11.9 Type 2 diabetes mellitus without complications
CPT/HCPCS: 93005; 99285

== ENCOUNTER 2018-01-01 10:42 | Inpatient (IN) | payer MEDICARE, OTHER ==
[~2018-01-01] VITALS: Ht 165.1 cm; Wt 98.4 kg
[2018-01-01 10:58] LABS: GLUCOSE,POINT OF CARE 136 MG/DL (70-110)
[2018-01-01] MEDS ORDERED: SODIUM CHLORIDE 0.9% 1,000 ML IV ONE ×2 (12:00→13:30)
[2018-01-01 13:06] LABS: BASOPHILS % (AUTO) 0.6 % (0.0-2.0); EOSINOPHILS % (AUTO) 0.7 % (1.0-6.0); HEMATOCRIT 43.6 % (36-46); HEMOGLOBIN 14.7 g/dL (12.0-16.0); LYMPHOCYTES # (AUTO) 1.7 K/uL (1.0-4.8); LYMPHOCYTES % (AUTO) 19.1 % (22.0-44.0); MEAN CORPUSCULAR HEMOGLOBIN 31.9 pg (26.0-34.0); MEAN CORPUSCULAR HGB CONC 33.6 G/dL (31.0-37.0); MEAN CORPUSCULAR VOLUME 95 fL (80-100); MONOCYTES # (AUTO) 0.8 K/uL (0.1-1.0); MONOCYTES % (AUTO) 8.8 % (2.0-9.0); NEUTROPHILS # (AUTO) 6.3 K/uL (1.8-7.7); NEUTROPHILS % (AUTO) 70.8 % (40.0-70.0); PLATELET COUNT (AUTO) 283 K/uL (150-450); RED BLOOD CELL COUNT(AUTO) 4.59 MIL/uL (4.00-5.20)
[2018-01-01 13:14] LABS: APPEARANCE,URINE CLOUDY (CLEAR); GLUCOSE, URINE (UA) NEGATIVE (NEGATIVE); KETONES,URINE TRACE mg/dL (NEGATIVE); LEUKOCYTE ESTERASE ,URINE NEGATIVE (NEGATIVE); NITRATE,URINE NEGATIVE (NEGATIVE); OCCULT BLOOD,URINE NEGATIVE (NEGATIVE); PROTEIN,URINE NEGATIVE (NEGATIVE); UROBILINOGEN,URINE 0.2 mg/dL (<=1.0)
[2018-01-01 13:15] LABS: BILIRUBIN,URINE PRELIM. POSITIVE (NEGATIVE)
[2018-01-01 13:16] LABS: ANION GAP 9 mmol/L (8-16); CALCIUM, TOTAL 9.4 mg/dL (8.8-10.5); CARBON DIOXIDE 27 mmol/L (22-29); CHLORIDE 104 mmol/L (98-107); CREATININE 1.57 mg/dL (0.60-1.30); GLOMERULAR FILTR. RATE CALC 31 mL/min (>60); GLUCOSE,RANDOM 115 mg/dL (70-110); POTASSIUM 4.2 mmol/L (3.5-5.1); SODIUM SERUM 140 mmol/L (136-145); UREA NITROGEN, BLOOD 36 mg/dL (7-18)
[2018-01-01 13:21] LABS: ALANINE AMINOTRANSFERASE 34 U/L (12-78); ALBUMIN 3.4 g/dL (3.4-5.0); ALKALINE PHOSPHATASE 65 U/L (46-116); ASPARTATE AMINOTRANSFERASE 22 U/L (15-37); BILIRUBIN,TOTAL 1.1 mg/dL (0.1-1.0); CREATINE KINASE, TOTAL 56 U/L (26-192); TOTAL PROTEIN, SERUM 6.5 g/dL (6.4-8.2)
[2018-01-01 13:24] LABS: RBC,URINE 0-2 /HPF (0-2); WBC,URINE 0-2 /HPF (0-5)
[2018-01-01 13:25] LABS: BACTERIA,URINE None Seen /HPF (None Seen); MUCUS,URINE Rare LPF (None Seen); SQUAMOUS EPITHELIAL CELL,UR Few /LPF (None Seen)
[2018-01-01 13:26] LABS: AMORPHOUS SEDIMENT,UR Moderate /LPF (None Seen); HYALINE CASTS, URINE 0-2 /LPF (None Seen)
[2018-01-01] MEDS ORDERED: OxyCODONE HCL/ACETAMINOPHEN 5-325 MG TABLET PO PRN (13:30)
[2018-01-01] MEDS ORDERED: ACETAMINOPHEN 325 MG TABLET PO PRN (13:30)
[2018-01-01] MEDS ORDERED: DEXTROSE 50%-WATER 25 GM/50 ML SYRINGE IVP PRN (13:30)
[2018-01-01] MEDS ORDERED: MAGNESIUM HYDROXIDE SUSPENSION 30 ML UDCUP PO PRN (13:30)
[2018-01-01 13:51] LABS: THYROID STIMULATING HORMONE 1.82 uIU/mL (0.36-3.74)
[2018-01-01 14:55] VITALS: BP 154/72
[2018-01-01 19:48] VITALS: BP 138/89
[2018-01-01] MEDS: APIXABAN 5 MG TABLET PO SCH (20:19)
[2018-01-01] MEDS: DOCUSATE SODIUM 100 MG CAPSULE PO SCH (20:19)
[2018-01-01] MEDS: AMIODARONE HCL 200 MG TABLET PO SCH (20:19)
[2018-01-02] VITALS (7 sets, daily range): BP systolic 150–188; BP diastolic 67–85
[2018-01-02] MEDS: INSULIN LISPRO 100 UNITS/ML SQ PRN ×4 (05:00→19:47)
[2018-01-02] MEDS: AMIODARONE HCL 200 MG TABLET PO SCH ×2 (08:45→19:45)
[2018-01-02] MEDS: APIXABAN 5 MG TABLET PO SCH (08:45)
[2018-01-02] MEDS: DOCUSATE SODIUM 100 MG CAPSULE PO SCH ×3 (08:45→19:45)
[2018-01-02] MEDS: PANTOPRAZOLE SODIUM 40 MG DR TABLET PO SCH (08:45)
[2018-01-02] MEDS: AmLODIPine BESYLATE 5 MG TABLET PO SCH (10:03)
[2018-01-02] MEDS ORDERED: HydrALAZINE HCL 20 MG/ML VIAL IVP PRN (14:45)
[2018-01-02 16:05] LABS: GLUCOMETER DEV NAME(LOC) 5S 2Q; GLUCOSE,POINT OF CARE 68 MG/DL (70-110)
[2018-01-02 16:05] LABS: GLUCOMETER DEV NAME(LOC) 5S 2Q; GLUCOSE,POINT OF CARE 153 MG/DL (70-110)
[2018-01-02] MEDS ORDERED: ATORVASTATIN CALCIUM 40 MG TABLET PO SCH (21:00)
[2018-01-02] MEDS: HEPARIN SODIUM,PORCINE 5,000 UNITS/ML VIAL SQ SCH (23:53)
[2018-01-03 00:42] VITALS: BP 144/65
[2018-01-03 00:43] LABS: GLUCOMETER DEV NAME(LOC) 5N 2S; GLUCOSE,POINT OF CARE 98 MG/DL (70-110)
[2018-01-03 00:44] LABS: GLUCOMETER DEV NAME(LOC) 5N 2S; GLUCOSE,POINT OF CARE 118 MG/DL (70-110)
[2018-01-03 00:49] LABS: GLUCOMETER DEV NAME(LOC) 5S 1M; GLUCOSE,POINT OF CARE 172 MG/DL (70-110)
[2018-01-03 00:49] LABS: GLUCOMETER DEV NAME(LOC) 5N 1P; GLUCOSE,POINT OF CARE 140 MG/DL (70-110)
[2018-01-03 04:50] VITALS: BP 156/71
[2018-01-03 06:16] LABS: BASOPHILS % (AUTO) 0.6 % (0.0-2.0); EOSINOPHILS % (AUTO) 2.2 % (1.0-6.0); HEMOGLOBIN 13.4 g/dL (12.0-16.0); LYMPHOCYTES # (AUTO) 1.6 K/uL (1.0-4.8); LYMPHOCYTES % (AUTO) 19.9 % (22.0-44.0); MEAN CORPUSCULAR HEMOGLOBIN 32.2 pg (26.0-34.0); MEAN CORPUSCULAR HGB CONC 34.3 G/dL (31.0-37.0); MEAN CORPUSCULAR VOLUME 94 fL (80-100); MONOCYTES # (AUTO) 0.9 K/uL (0.1-1.0); MONOCYTES % (AUTO) 11.7 % (2.0-9.0); NEUTROPHILS # (AUTO) 5.2 K/uL (1.8-7.7); NEUTROPHILS % (AUTO) 65.6 % (40.0-70.0); PLATELET COUNT (AUTO) 239 K/uL (150-450); RED BLOOD CELL COUNT(AUTO) 4.15 MIL/uL (4.00-5.20); RED CELL DISTRIBUTION WIDTH 14.8 % (11.5-14.5)
[2018-01-03 06:48] LABS: CALCIUM, TOTAL 8.6 mg/dL (8.8-10.5); CREATININE 1.02 mg/dL (0.60-1.30); POTASSIUM 3.8 mmol/L (3.5-5.1); THYROID STIMULATING HORMONE 1.55 uIU/mL (0.36-3.74)
[2018-01-03 07:37] VITALS: BP 127/57
[2018-01-03] MEDS: HEPARIN SODIUM,PORCINE 5,000 UNITS/ML VIAL SQ SCH (08:42)
[2018-01-03] MEDS: PANTOPRAZOLE SODIUM 40 MG DR TABLET PO SCH (08:42)
[2018-01-03] MEDS: AMIODARONE HCL 200 MG TABLET PO SCH (08:43)
[2018-01-03] MEDS: AmLODIPine BESYLATE 5 MG TABLET PO SCH (08:43)
[2018-01-03] MEDS: DOCUSATE SODIUM 100 MG CAPSULE PO SCH (08:43)
[2018-01-03] MEDS ORDERED: ASPIRIN 81 MG CHEWABLE TABLET PO SCH (09:00)
[2018-01-03 10:44] LABS: GLUCOMETER DEV NAME(LOC) 5S 2Q; GLUCOSE,POINT OF CARE 94 MG/DL (70-110)
== END 2018-01-03 15:15 | disposition home or self-care (01) | DRG 947 ==
LOC: EMS 10:42 → 5S 13:41
PROVIDERS: ADMIT Internal Medicine; ATTEND Internal Medicine
DX: R53.1 Weakness (principal); G93.40 Encephalopathy, unspecified; I47.1 Supraventricular tachycardia; N17.9 Acute kidney failure, unspecified; I10 Essential (primary) hypertension; E78.5 Hyperlipidemia, unspecified; E11.9 Type 2 diabetes mellitus without complications; M19.90 Unspecified osteoarthritis, unspecified site; E78.00 Pure hypercholesterolemia, unspecified; I48.0 Paroxysmal atrial fibrillation; E66.9 Obesity, unspecified; Z86.73 Personal history of transient ischemic attack (TIA), and cerebral infarction without residual deficits; Z83.3 Family history of diabetes mellitus; Z82.49 Family history of ischemic heart disease and other diseases of the circulatory system; Z79.01 Long term (current) use of anticoagulants; Z68.36 Body mass index [BMI] 36.0-36.9, adult
CPT/HCPCS: 51702; 70450; 84443; 93005; 97161; 97530; 99285; J1644; J7030

== ENCOUNTER 2018-02-22 05:57 | Inpatient (IN) | payer MEDICARE, OTHER ==
[~2018-02-22] VITALS: Ht 167.6 cm; Wt 93.9 kg
[~2018-02-22 05:57] MED LIST changes: -AMIO200T44 PO; -APIX5TAB PO; -METO25 PO
[2018-02-22 06:09] LABS: GLUCOSE,POINT OF CARE 119 MG/DL (70-110)
[2018-02-22] MEDS ORDERED: ADV100 IH (06:10)
[2018-02-22] MEDS ORDERED: AMIO200T44 PO (06:10)
[2018-02-22] MEDS ORDERED: TELM40 PO (06:10)
[2018-02-22] MEDS ORDERED: NITROGLYCERIN 2% (1 GM=INCH) PACKET TP ONE (06:15)
[2018-02-22] MEDS ORDERED: ASPIRIN 81 MG CHEWABLE TABLET PO ONE (06:15)
[2018-02-22 08:19] LABS: BASOPHILS % (AUTO) 0.8 % (0.0-2.0); EOSINOPHILS % (AUTO) 2.3 % (1.0-6.0); HEMATOCRIT 38.5 % (36-46); HEMOGLOBIN 12.9 g/dL (12.0-16.0); LYMPHOCYTES # (AUTO) 1.4 K/uL (1.0-4.8); LYMPHOCYTES % (AUTO) 19.4 % (22.0-44.0); MEAN CORPUSCULAR HEMOGLOBIN 32.4 pg (26.0-34.0); MEAN CORPUSCULAR HGB CONC 33.5 G/dL (31.0-37.0); MEAN CORPUSCULAR VOLUME 97 fL (80-100); MONOCYTES # (AUTO) 0.9 K/uL (0.1-1.0); MONOCYTES % (AUTO) 12.2 % (2.0-9.0); NEUTROPHILS # (AUTO) 4.9 K/uL (1.8-7.7); NEUTROPHILS % (AUTO) 65.3 % (40.0-70.0); PLATELET COUNT (AUTO) 221 K/uL (150-450); RED BLOOD CELL COUNT(AUTO) 3.98 MIL/uL (4.00-5.20); RED CELL DISTRIBUTION WIDTH 15.1 % (11.5-14.5)
[2018-02-22 08:29] LABS: ANION GAP 9 mmol/L (8-16); CARBON DIOXIDE 28 mmol/L (22-29); CHLORIDE 106 mmol/L (98-107); CREATININE 0.88 mg/dL (0.60-1.30); GLUCOSE,RANDOM 120 mg/dL (70-110); POTASSIUM 3.1 mmol/L (3.5-5.1); SODIUM SERUM 143 mmol/L (136-145); UREA NITROGEN, BLOOD 6 mg/dL (7-18)
[2018-02-22 08:31] LABS: INR 1.1 (0.9-1.1); PROTHROMBIN TIME 11.1 SEC (9.4-11.6)
[2018-02-22 08:36] LABS: GLOMERULAR FILTR. RATE CALC > 60 mL/min (>60)
[2018-02-22 08:47] LABS: B-TYPE NATRIURETIC PEPTIDE 121 pg/mL (0-100)
[2018-02-22 09:00] LABS: ALANINE AMINOTRANSFERASE 29 U/L (12-78); ALBUMIN 2.9 g/dL (3.4-5.0); ALKALINE PHOSPHATASE 57 U/L (46-116); ASPARTATE AMINOTRANSFERASE 23 U/L (15-37); BILIRUBIN,TOTAL 0.9 mg/dL (0.1-1.0); CREATINE KINASE, TOTAL 88 U/L (26-192); TOTAL PROTEIN, SERUM 5.8 g/dL (6.4-8.2)
[2018-02-22 09:23] LABS: CREATINE KINASE MB 1.4 ng/mL (0-5)
[2018-02-22 10:25] LABS: APPEARANCE,URINE CLEAR (CLEAR); BILIRUBIN,URINE NEGATIVE (NEGATIVE); GLUCOSE, URINE (UA) NEGATIVE (NEGATIVE); KETONES,URINE 15 mg/dL (NEGATIVE); LEUKOCYTE ESTERASE ,URINE NEGATIVE (NEGATIVE); NITRATE,URINE NEGATIVE (NEGATIVE); OCCULT BLOOD,URINE NEGATIVE (NEGATIVE); PH,URINE 6.5 (5.0-8.0); PROTEIN,URINE NEGATIVE (NEGATIVE); UROBILINOGEN,URINE 0.2 mg/dL (<=1.0)
[2018-02-22 11:24] LABS: GLUCOSE,POINT OF CARE 117 MG/DL (70-110)
[2018-02-22 12:16] VITALS: BP 170/70
[2018-02-22] MEDS ORDERED: ZOLPIDEM TARTRATE 10 MG TABLET PO PRN (12:45)
[2018-02-22] MEDS ORDERED: ONDANSETRON HCL 4 MG/2 ML VIAL IVP PRN (12:45)
[2018-02-22] MEDS ORDERED: MAGNESIUM HYDROXIDE SUSPENSION 30 ML UDCUP PO PRN (12:45)
[2018-02-22] MEDS ORDERED: ACETAMINOPHEN 325 MG TABLET PO PRN (12:45)
[2018-02-22] MEDS ORDERED: MORPHINE SULFATE 2 MG/ML SYRINGE IVP PRN (12:45)
[2018-02-22] MEDS ORDERED: HYDROCODONE/ACETAMINOPHEN 5-325 MG TABLET PO PRN (12:45)
[2018-02-22] MEDS ORDERED: INSULIN LISPRO 100 UNITS/ML SQ PRN ×2 (13:00→21:30)
[2018-02-22] MEDS ORDERED: POTASSIUM CHLORIDE 20 MEQ ER TABLET PO PRN (13:00)
[2018-02-22] MEDS ORDERED: GLUCAGON,HUMAN RECOMBINANT 1 MG VIAL IM PRN (13:00)
[2018-02-22] MEDS ORDERED: POTASSIUM CHL 10 MEQ/WATER 50 ML IV PRN (13:00)
[2018-02-22] MEDS: CARVEDILOL 6.25 MG TABLET PO SCH ×2 (14:28→20:13)
[2018-02-22 16:24] VITALS: BP 136/77
[2018-02-22] MEDS: NITROGLYCERIN 2% (1 GM=INCH) PACKET TP SCH (17:46)
[2018-02-22 19:58] VITALS: BP 157/62
[2018-02-22] MEDS: ATORVASTATIN CALCIUM 40 MG TABLET PO SCH (20:13)
[2018-02-22] MEDS: DOCUSATE SODIUM 100 MG CAPSULE PO SCH (20:13)
[2018-02-22] MEDS ORDERED: CARVEDILOL 6.25 MG TABLET PO SCH (21:00)
[2018-02-22] MEDS ORDERED: DEXTROSE 50%-WATER 25 GM/50 ML SYG IVP PRN (21:30)
[2018-02-22 23:24] LABS: GLUCOMETER DEV NAME(LOC) 5S 2Q; GLUCOSE,POINT OF CARE 156 MG/DL (70-110)
[2018-02-22 23:24] LABS: GLUCOMETER DEV NAME(LOC) 5S 2Q; GLUCOSE,POINT OF CARE 121 MG/DL (70-110)
[2018-02-22 23:54] VITALS: BP 176/77
[2018-02-23] MEDS: NITROGLYCERIN 2% (1 GM=INCH) PACKET TP SCH ×4 (00:01→18:00)
[2018-02-23 04:27] VITALS: BP 133/69
[2018-02-23 06:32] LABS: CHOL/HDL RATIO 2.1 (3.9-5.7)
[2018-02-23] MEDS: GlipiZIDE 5 MG TABLET PO SCH (06:47)
[2018-02-23 07:25] VITALS: BP 152/72
[2018-02-23] MEDS: TIOTROPIUM BROMIDE 18 MCG/INH HANDIHALER [5] IH SCH (09:00)
[2018-02-23] MEDS: FLUTICASONE/VILANTEROL 100-25 MCG/INH INHALER [14] IH SCH (09:00)
[2018-02-23] MEDS: DOCUSATE SODIUM 100 MG CAPSULE PO SCH ×2 (09:00→20:26)
[2018-02-23] MEDS: ROFLUMILAST 500 MCG TABLET PO SCH (09:06)
[2018-02-23] MEDS: TELMISARTAN 40 MG TABLET PO SCH (09:06)
[2018-02-23] MEDS: AMIODARONE HCL 200 MG TABLET PO SCH (09:06)
[2018-02-23] MEDS: PANTOPRAZOLE SODIUM 40 MG/VIAL IVP SCH (09:06)
[2018-02-23] MEDS: ASPIRIN 81 MG CHEWABLE TABLET PO SCH (09:07)
[2018-02-23] MEDS: MULTIVITAMINS WITH MINERALS, THERAPEUTIC TABLET PO SCH (09:07)
[2018-02-23] MEDS: CARVEDILOL 6.25 MG TABLET PO SCH ×2 (09:07→20:26)
[2018-02-23 11:46] VITALS: BP 144/70
[2018-02-23] MEDS ORDERED: BARIUM SULFATE 0.1% SUSPENSION 450 ML BOTTLE ONE (15:03)
[2018-02-23] MEDS ORDERED: IOVERSOL 350 MG/ML 100 ML VIAL ONE (15:53)
[2018-02-23 16:06] VITALS: BP 165/78
[2018-02-23 19:12] VITALS: BP 149/64
[2018-02-23] MEDS: ATORVASTATIN CALCIUM 40 MG TABLET PO SCH (20:26)
[2018-02-24 00:05] VITALS: BP 149/71
[2018-02-24 04:15] VITALS: BP 151/64
[2018-02-24] MEDS: NITROGLYCERIN 2% (1 GM=INCH) PACKET TP SCH ×3 (05:58→12:00)
[2018-02-24] MEDS: GlipiZIDE 5 MG TABLET PO SCH (06:40)
[2018-02-24 07:23] VITALS: BP 157/73
[2018-02-24] MEDS: DOCUSATE SODIUM 100 MG CAPSULE PO SCH (09:00)
[2018-02-24] MEDS: FLUTICASONE/VILANTEROL 100-25 MCG/INH INHALER [14] IH SCH (09:14)
[2018-02-24] MEDS: TIOTROPIUM BROMIDE 18 MCG/INH HANDIHALER [5] IH SCH (09:15)
[2018-02-24] MEDS: PANTOPRAZOLE SODIUM 40 MG/VIAL IVP SCH (09:15)
[2018-02-24] MEDS: ROFLUMILAST 500 MCG TABLET PO SCH (09:16)
[2018-02-24] MEDS: CARVEDILOL 6.25 MG TABLET PO SCH (09:16)
[2018-02-24] MEDS: TELMISARTAN 40 MG TABLET PO SCH (09:17)
[2018-02-24] MEDS: MULTIVITAMINS WITH MINERALS, THERAPEUTIC TABLET PO SCH (09:17)
[2018-02-24] MEDS: AMIODARONE HCL 200 MG TABLET PO SCH (09:17)
[2018-02-24] MEDS: ASPIRIN 81 MG CHEWABLE TABLET PO SCH (09:19)
[2018-02-24 11:31] VITALS: BP 135/60
[2018-02-24 15:18] VITALS: BP 146/76
[2018-02-24 21:49] LABS: GLUCOMETER DEV NAME(LOC) 5N 2S; GLUCOSE,POINT OF CARE 154 MG/DL (70-110)
[2018-02-24 21:49] LABS: GLUCOMETER DEV NAME(LOC) 5N 2S; GLUCOSE,POINT OF CARE 88 MG/DL (70-110)
[2018-02-24 21:49] LABS: GLUCOMETER DEV NAME(LOC) 5N 2S; GLUCOSE,POINT OF CARE 101 MG/DL (70-110)
[2018-02-24 21:49] LABS: GLUCOMETER DEV NAME(LOC) 5N 2S; GLUCOSE,POINT OF CARE 131 MG/DL (70-110)
[2018-02-24 21:49] LABS: GLUCOMETER DEV NAME(LOC) 5N 2S; GLUCOSE,POINT OF CARE 121 MG/DL (70-110)
[2018-02-24 21:49] LABS: GLUCOMETER DEV NAME(LOC) 5N 2S; GLUCOSE,POINT OF CARE 146 MG/DL (70-110)
[2018-02-25 02:43] LABS: GLUCOMETER DEV NAME(LOC) 5S 2Q; GLUCOSE,POINT OF CARE 78 MG/DL (70-110)
== END 2018-02-24 17:15 | disposition home or self-care (01) | DRG 392 ==
LOC: EMS 05:58 → 5S 10:59
PROVIDERS: ADMIT Hospitalist; ATTEND Hospitalist
DX: K21.9 Gastro-esophageal reflux disease without esophagitis (principal); I47.1 Supraventricular tachycardia; K44.9 Diaphragmatic hernia without obstruction or gangrene; N93.9 Abnormal uterine and vaginal bleeding, unspecified; I48.91 Unspecified atrial fibrillation; E11.9 Type 2 diabetes mellitus without complications; I10 Essential (primary) hypertension; E78.5 Hyperlipidemia, unspecified; E78.00 Pure hypercholesterolemia, unspecified; M19.90 Unspecified osteoarthritis, unspecified site
CPT/HCPCS: 71260; 72193; 74160; 84132; 84443; 93005; 97116; 97162; 97530; 99285; C9113; J2405

== ENCOUNTER → 2018-03-18 | Outpatient (CLI) | payer MEDICARE, OTHER ==
[~2018-03-18] MED LIST changes: +ADV100 IH; +AMIO200T44 PO; +TELM40 PO
== END | disposition home or self-care (01) ==
LOC: RADPV 09:21
PROVIDERS: ATTEND Internal Medicine
DX: N93.8 Other specified abnormal uterine and vaginal bleeding (principal); R97.1 Elevated cancer antigen 125 [CA 125]
CPT/HCPCS: 76830; 76856

== ENCOUNTER → 2018-03-30 | Outpatient (CLI) | payer MEDICARE, OTHER ==
[2018-03-30 13:49] LABS: BASOPHILS % (AUTO) 0.6 % (0.0-2.0); EOSINOPHILS % (AUTO) 3.5 % (1.0-6.0); HEMATOCRIT 38.6 % (36-46); LYMPHOCYTES # (AUTO) 1.5 K/uL (1.0-4.8); LYMPHOCYTES % (AUTO) 21.9 % (22.0-44.0); MEAN CORPUSCULAR HGB CONC 33.6 G/dL (31.0-37.0); MEAN CORPUSCULAR VOLUME 95 fL (80-100); MONOCYTES # (AUTO) 0.8 K/uL (0.1-1.0); MONOCYTES % (AUTO) 11.1 % (2.0-9.0); NEUTROPHILS # (AUTO) 4.4 K/uL (1.8-7.7); NEUTROPHILS % (AUTO) 62.9 % (40.0-70.0); RED BLOOD CELL COUNT(AUTO) 4.05 MIL/uL (4.00-5.20); RED CELL DISTRIBUTION WIDTH 15.5 % (11.5-14.5)
[2018-03-30 14:26] LABS: PLATELET COUNT (AUTO) 223 K/uL (150-450)
== END | disposition home or self-care (01) ==
LOC: LABPV 11:01
PROVIDERS: ATTEND Internal Medicine
DX: D72.829 Elevated white blood cell count, unspecified (principal); E78.00 Pure hypercholesterolemia, unspecified; J44.9 Chronic obstructive pulmonary disease, unspecified; I10 Essential (primary) hypertension; E11.9 Type 2 diabetes mellitus without complications; M19.90 Unspecified osteoarthritis, unspecified site

== ENCOUNTER 2018-06-30 16:23 | Emergency (ER) | payer MEDICARE, OTHER ==
[~2018-06-30] VITALS: Ht 165.1 cm; Wt 92.3 kg
[2018-06-30 16:59] LABS: GLUCOSE,POINT OF CARE 191 MG/DL (70-110)
[2018-06-30 19:15] LABS: CALCIUM, TOTAL 9.5 mg/dL (8.8-10.5); CREATININE 0.92 mg/dL (0.60-1.30); POTASSIUM 3.8 mmol/L (3.5-5.1)
[2018-06-30 19:21] LABS: ALBUMIN 3.3 g/dL (3.4-5.0); BILIRUBIN,TOTAL 0.7 mg/dL (0.1-1.0); TOTAL PROTEIN, SERUM 6.6 g/dL (6.4-8.2)
[2018-06-30] MEDS ORDERED: ACETAMINOPHEN 500 MG TABLET PO ONE (19:45)
[2018-06-30 20:05] LABS: HEMATOCRIT 38.9 % (36-46); HEMOGLOBIN 13.1 g/dL (12.0-16.0); MEAN CORPUSCULAR HEMOGLOBIN 32.3 pg (26.0-34.0); MEAN CORPUSCULAR HGB CONC 33.8 G/dL (31.0-37.0); MEAN CORPUSCULAR VOLUME 96 fL (80-100); PLATELET COUNT (AUTO) 225 K/uL (150-450); RED BLOOD CELL COUNT(AUTO) 4.07 MIL/uL (4.00-5.20); RED CELL DISTRIBUTION WIDTH 15.6 % (11.5-14.5)
[2018-06-30 20:34] LABS: BAND NEUTROPHILS % (MANUAL) 0 % (0-5)
[2018-06-30 20:36] LABS: BASOPHILS % (MANUAL) 1 % (0-2); EOSINOPHILS % (MANUAL) 4 % (1-6); LYMPHOCYTES % (MANUAL) 27 % (22-44); MONOCYTES % (MANUAL) 7 % (2-9); SEGMENTED NEUTROPHILS % 61 % (40-70)
[2018-06-30 20:37] VITALS: BP 162/87
== END 2018-06-30 20:50 | disposition home or self-care (01) ==
LOC: EMS 16:24
DX: S83.91XA Sprain of unspecified site of right knee, initial encounter (principal); S20.211A Contusion of right front wall of thorax, initial encounter; S05.12XA Contusion of eyeball and orbital tissues, left eye, initial encounter; E11.65 Type 2 diabetes mellitus with hyperglycemia; I48.91 Unspecified atrial fibrillation; E78.00 Pure hypercholesterolemia, unspecified; I10 Essential (primary) hypertension; M19.90 Unspecified osteoarthritis, unspecified site; W10.8XXA Fall (on) (from) other stairs and steps, initial encounter; Y93.89 Activity, other specified; Y92.89 Other specified places as the place of occurrence of the external cause; Y99.8 Other external cause status
CPT/HCPCS: 71101

== ENCOUNTER → 2018-07-20 | Outpatient (CLI) | payer MEDICARE, OTHER ==
[2018-07-20 12:43] LABS: BASOPHILS % (AUTO) 0.4 % (0.0-2.0); EOSINOPHILS % (AUTO) 2.2 % (1.0-6.0); HEMATOCRIT 40.7 % (36-46); HEMOGLOBIN 13.6 g/dL (12.0-16.0); LYMPHOCYTES # (AUTO) 1.6 K/uL (1.0-4.8); LYMPHOCYTES % (AUTO) 20.9 % (22.0-44.0); MEAN CORPUSCULAR HEMOGLOBIN 32.3 pg (26.0-34.0); MEAN CORPUSCULAR HGB CONC 33.5 G/dL (31.0-37.0); MEAN CORPUSCULAR VOLUME 96 fL (80-100); MONOCYTES # (AUTO) 0.6 K/uL (0.1-1.0); MONOCYTES % (AUTO) 8.2 % (2.0-9.0); NEUTROPHILS # (AUTO) 5.1 K/uL (1.8-7.7); NEUTROPHILS % (AUTO) 68.3 % (40.0-70.0); PLATELET COUNT (AUTO) 203 K/uL (150-450); RED BLOOD CELL COUNT(AUTO) 4.22 MIL/uL (4.00-5.20); RED CELL DISTRIBUTION WIDTH 15.5 % (11.5-14.5)
[2018-07-20 12:58] LABS: APPEARANCE,URINE CLEAR (CLEAR); BILIRUBIN,URINE NEGATIVE (NEGATIVE); GLUCOSE, URINE (UA) NEGATIVE (NEGATIVE); KETONES,URINE NEGATIVE (NEGATIVE); LEUKOCYTE ESTERASE ,URINE TRACE (NEGATIVE); NITRATE,URINE NEGATIVE (NEGATIVE); OCCULT BLOOD,URINE NEGATIVE (NEGATIVE); PH,URINE 5.5 (5.0-8.0); PROTEIN,URINE SEE CONFIRM (NEGATIVE)
[2018-07-20 13:09] LABS: BACTERIA,URINE None Seen /HPF (None Seen); RBC,URINE None Seen /HPF (0-2); SQUAMOUS EPITHELIAL CELL,UR Few /LPF (None Seen); SULFOSALICYLIC ACID,URINE Trace (Negative)
[2018-07-20 13:33] LABS: CALCIUM, TOTAL 9.4 mg/dL (8.8-10.5); CREATININE 1.05 mg/dL (0.60-1.30)
[2018-07-20 13:34] LABS: ALBUMIN 3.3 g/dL (3.4-5.0); CHOL/HDL RATIO 2.4 (3.9-5.7); THYROID STIMULATING HORMONE 2.44 uIU/mL (0.36-3.74); TOTAL PROTEIN, SERUM 6.7 g/dL (6.4-8.2)
[2018-07-20 13:42] LABS: HEMOGLOBIN A1C 5.6 % (4.5-6.2)
== END | disposition home or self-care (01) ==
LOC: LABPV 11:57
PROVIDERS: ATTEND Internal Medicine
DX: E11.69 Type 2 diabetes mellitus with other specified complication (principal); E78.5 Hyperlipidemia, unspecified; I48.91 Unspecified atrial fibrillation; R35.0 Frequency of micturition; R63.4 Abnormal weight loss
CPT/HCPCS: 82043; 82570; 83036; 84443

== ENCOUNTER → 2019-01-11 | Outpatient (CLI) | payer MEDICARE, OTHER ==
[2019-01-11 12:30] LABS: BASOPHILS % (AUTO) 0.8 % (0.0-2.0); HEMATOCRIT 40.3 % (36-46); HEMOGLOBIN 13.1 g/dL (12.0-16.0); LYMPHOCYTES # (AUTO) 2.1 K/uL (1.0-4.8); LYMPHOCYTES % (AUTO) 41.8 % (22.0-44.0); MEAN CORPUSCULAR HEMOGLOBIN 32.6 pg (26.0-34.0); MEAN CORPUSCULAR HGB CONC 32.6 G/dL (31.0-37.0); MEAN CORPUSCULAR VOLUME 100 fL (80-100); MONOCYTES # (AUTO) 0.5 K/uL (0.1-1.0); MONOCYTES % (AUTO) 9.8 % (2.0-9.0); NEUTROPHILS # (AUTO) 2.1 K/uL (1.8-7.7); NEUTROPHILS % (AUTO) 41.6 % (40.0-70.0); PLATELET COUNT (AUTO) 180 K/uL (150-450); RED BLOOD CELL COUNT(AUTO) 4.03 MIL/uL (4.00-5.20); RED CELL DISTRIBUTION WIDTH 15.4 % (11.5-14.5)
[2019-01-11 12:47] LABS: HEMOGLOBIN A1C 5.9 % (4.5-6.2)
[2019-01-11 12:53] LABS: ALBUMIN 3.3 g/dL (3.4-5.0); CALCIUM, TOTAL 9.8 mg/dL (8.8-10.5); CHOL/HDL RATIO 2.6 (3.9-5.7); CREATININE 1.03 mg/dL (0.60-1.30); POTASSIUM 3.9 mmol/L (3.5-5.1); TOTAL PROTEIN, SERUM 6.6 g/dL (6.4-8.2)
== END | disposition home or self-care (01) ==
LOC: LABPV 10:17
PROVIDERS: ATTEND Internal Medicine
DX: E78.5 Hyperlipidemia, unspecified (principal); E11.69 Type 2 diabetes mellitus with other specified complication; Z79.899 Other long term (current) drug therapy
CPT/HCPCS: 83036

== ENCOUNTER → 2019-06-07 | Outpatient (CLI) | payer MEDICARE, OTHER ==
[2019-06-07 15:35] LABS: APPEARANCE,URINE CLEAR (CLEAR); BILIRUBIN,URINE NEGATIVE (NEGATIVE); GLUCOSE, URINE (UA) NEGATIVE (NEGATIVE); KETONES,URINE NEGATIVE (NEGATIVE); LEUKOCYTE ESTERASE ,URINE TRACE (NEGATIVE); NITRATE,URINE NEGATIVE (NEGATIVE); OCCULT BLOOD,URINE NEGATIVE (NEGATIVE); PH,URINE 5.5 (5.0-8.0); PROTEIN,URINE SEE CONFIRM (NEGATIVE); UROBILINOGEN,URINE 0.2 mg/dL (<=1.0)
[2019-06-07 15:53] LABS: SULFOSALICYLIC ACID,URINE 2+ (Negative)
[2019-06-07 15:54] LABS: BACTERIA,URINE None Seen /HPF (None Seen); RBC,URINE None Seen /HPF (0-2); SQUAMOUS EPITHELIAL CELL,UR Moderate /LPF (None Seen)
== END | disposition home or self-care (01) ==
LOC: LABMN 15:07
PROVIDERS: ATTEND Internal Medicine
DX: R30.0 Dysuria (principal); J44.9 Chronic obstructive pulmonary disease, unspecified; I10 Essential (primary) hypertension; M19.90 Unspecified osteoarthritis, unspecified site; M85.80 Other specified disorders of bone density and structure, unspecified site; E11.9 Type 2 diabetes mellitus without complications; E78.00 Pure hypercholesterolemia, unspecified

== ENCOUNTER 2019-07-22 16:25 | Emergency (ER) | payer MEDICARE, OTHER ==
[~2019-07-22] VITALS: Ht 162.6 cm; Wt 86.4 kg
[~2019-07-22 16:25] MED LIST changes: -AMIO200T44 PO; +AMIO200T67 PO
[2019-07-22] MEDS ORDERED: PANT40TA25 PO (17:07)
[2019-07-22] MEDS ORDERED: ISOS30TA6 PO (17:07)
[2019-07-22] MEDS ORDERED: CARV12 PO (17:07)
[2019-07-22] MEDS ORDERED: ASPI-728 PO (17:07)
[2019-07-22] MEDS ORDERED: ATOR40TA28 PO (17:07)
[2019-07-22] MEDS ORDERED: NIFE30TA5 PO (17:07)
[2019-07-22] MEDS ORDERED: MULT-1259 PO (17:07)
[2019-07-22] MEDS ORDERED: ROFL500T PO (17:07)
[2019-07-22 18:26] LABS: BASOPHILS % (AUTO) 0.9 % (0.0-2.0); EOSINOPHILS % (AUTO) 5.3 % (1.0-6.0); HEMATOCRIT 38.6 % (36-46); LYMPHOCYTES # (AUTO) 2.1 K/uL (1.0-4.8); LYMPHOCYTES % (AUTO) 36.8 % (22.0-44.0); MEAN CORPUSCULAR HEMOGLOBIN 32.9 pg (26.0-34.0); MEAN CORPUSCULAR HGB CONC 33.7 G/dL (31.0-37.0); MEAN CORPUSCULAR VOLUME 98 fL (80-100); MONOCYTES # (AUTO) 0.6 K/uL (0.1-1.0); MONOCYTES % (AUTO) 10.5 % (2.0-9.0); NEUTROPHILS # (AUTO) 2.6 K/uL (1.8-7.7); NEUTROPHILS % (AUTO) 46.5 % (40.0-70.0); PLATELET COUNT (AUTO) 195 K/uL (150-450); RED BLOOD CELL COUNT(AUTO) 3.96 MIL/uL (4.00-5.20); RED CELL DISTRIBUTION WIDTH 14.3 % (11.5-14.5)
[2019-07-22 18:33] LABS: ANION GAP 7 mmol/L (8-16); CALCIUM, TOTAL 9.5 mg/dL (8.8-10.5); CARBON DIOXIDE 29 mmol/L (22-29); CHLORIDE 106 mmol/L (98-107); CREATININE 0.88 mg/dL (0.60-1.30); GLOMERULAR FILTR. RATE CALC > 60 mL/min (>60); GLUCOSE,RANDOM 136 mg/dL (70-110); POTASSIUM 3.8 mmol/L (3.5-5.1); SODIUM SERUM 142 mmol/L (136-145); UREA NITROGEN, BLOOD 15 mg/dL (7-18)
[2019-07-22 18:40] LABS: ALANINE AMINOTRANSFERASE 23 U/L (12-78); ALBUMIN 3.5 g/dL (3.4-5.0); ALKALINE PHOSPHATASE 79 U/L (46-116); ASPARTATE AMINOTRANSFERASE 22 U/L (15-37); BILIRUBIN,TOTAL 0.8 mg/dL (0.1-1.0); CREATINE KINASE, TOTAL ONLY 72 U/L (26-192); TOTAL PROTEIN, SERUM 6.8 g/dL (6.4-8.2)
[2019-07-22 18:47] LABS: B-TYPE NATRIURETIC PEPTIDE 136 pg/mL (0-100)
[2019-07-22 19:23] VITALS: BP 158/74
[2019-07-22 19:41] LABS: INR 1.1 (0.9-1.1); PROTHROMBIN TIME 11.2 SEC (9.4-11.6)
[2019-07-22 19:52] LABS: APPEARANCE,URINE CLEAR (CLEAR); BILIRUBIN,URINE NEGATIVE (NEGATIVE); GLUCOSE, URINE (UA) NEGATIVE (NEGATIVE); KETONES,URINE NEGATIVE (NEGATIVE); LEUKOCYTE ESTERASE ,URINE MODERATE (NEGATIVE); NITRATE,URINE NEGATIVE (NEGATIVE); OCCULT BLOOD,URINE NEGATIVE (NEGATIVE); PROTEIN,URINE POS 1+ (NEGATIVE); UROBILINOGEN,URINE 0.2 mg/dL (<=1.0)
[2019-07-22 20:08] LABS: BACTERIA,URINE Few /HPF (None Seen); RBC,URINE 0-2 /HPF (0-2); SQUAMOUS EPITHELIAL CELL,UR Few /LPF (None Seen)
[2019-07-29] MEDS ORDERED: LIDOCAINE 2% 5 ML JELLY TP ONE (12:00)
== END 2019-07-22 20:19 | disposition home or self-care (01) ==
LOC: EMS 16:27
DX: I48.91 Unspecified atrial fibrillation (principal); E11.9 Type 2 diabetes mellitus without complications; E78.00 Pure hypercholesterolemia, unspecified; I10 Essential (primary) hypertension; M19.90 Unspecified osteoarthritis, unspecified site; Z98.890 Other specified postprocedural states; Z79.899 Other long term (current) drug therapy; Z79.82 Long term (current) use of aspirin
CPT/HCPCS: 93005

== ENCOUNTER 2020-09-04 11:46 | Emergency (ER) | payer MEDICARE, OTHER ==
[~2020-09-04] VITALS: Ht 162.6 cm; Wt 75.0 kg
[~2020-09-04 11:46] MED LIST changes: -ADV100 IH; -ADV250 IH; -AMIO200T67 PO; +ASPI-1450 PO; +CARV12 PO; -GLIP5 PO; +ISOS30TA92 PO; +MULT-1259 PO; -MULT1TAB11 PO; +NIFE-64 PO; +NIFE30TA5 PO; -OMEP20 PO; -TIOT185 IH
[2020-09-04 12:37] LABS: BASOPHILS % (AUTO) 0.8 % (0.0-2.0); EOSINOPHILS % (AUTO) 6.3 % (1.0-6.0); HEMATOCRIT 38.9 % (36-46); HEMOGLOBIN 12.7 g/dL (12.0-16.0); LYMPHOCYTES # (AUTO) 1.4 K/uL (1.0-4.8); LYMPHOCYTES % (AUTO) 23.4 % (22.0-44.0); MEAN CORPUSCULAR HEMOGLOBIN 31.6 pg (26.0-34.0); MEAN CORPUSCULAR HGB CONC 32.6 G/dL (31.0-37.0); MEAN CORPUSCULAR VOLUME 97 fL (80-100); MONOCYTES # (AUTO) 0.7 K/uL (0.1-1.0); MONOCYTES % (AUTO) 11.5 % (2.0-9.0); NEUTROPHILS # (AUTO) 3.5 K/uL (1.8-7.7); PLATELET COUNT (AUTO) 190 K/uL (150-450); RED BLOOD CELL COUNT(AUTO) 4.02 MIL/uL (4.00-5.20); RED CELL DISTRIBUTION WIDTH 14.7 % (11.5-14.5)
[2020-09-04 12:39] LABS: CREATININE 1.09 mg/dL (0.60-1.30); POTASSIUM 4.2 mmol/L (3.5-5.1)
[2020-09-04 12:43] LABS: INR 1.1 (0.9-1.1); PROTHROMBIN TIME 11.8 SEC (9.4-11.6)
[2020-09-04 12:45] LABS: ALBUMIN 3.1 g/dL (3.4-5.0); BILIRUBIN,TOTAL 0.8 mg/dL (0.1-1.0); MAGNESIUM 1.8 mg/dL (1.80-2.40); TOTAL PROTEIN, SERUM 6.4 g/dL (6.4-8.2)
[2020-09-04 14:55] LABS: APPEARANCE,URINE CLEAR (CLEAR); BILIRUBIN,URINE NEGATIVE (NEGATIVE); GLUCOSE, URINE (UA) 250 mg/dL (NEGATIVE); KETONES,URINE NEGATIVE (NEGATIVE); LEUKOCYTE ESTERASE ,URINE NEGATIVE (NEGATIVE); NITRATE,URINE NEGATIVE (NEGATIVE); OCCULT BLOOD,URINE NEGATIVE (NEGATIVE); PH,URINE 6.5 (5.0-8.0); PROTEIN,URINE SEE CONFIRM (NEGATIVE); UROBILINOGEN,URINE 0.2 mg/dL (<=1.0)
[2020-09-04 15:21] LABS: BACTERIA,URINE Rare /HPF (None Seen); RBC,URINE 0-2 /HPF (0-2); SQUAMOUS EPITHELIAL CELL,UR Few /LPF (None Seen); SULFOSALICYLIC ACID,URINE 2+ (Negative); WBC,URINE 0-2 /HPF (0-5)
[2020-09-04 15:30] VITALS: BP 156/76
== END 2020-09-04 16:05 | disposition home or self-care (01) ==
LOC: EMS 11:46
DX: I47.1 Supraventricular tachycardia (principal); I48.91 Unspecified atrial fibrillation; E11.9 Type 2 diabetes mellitus without complications; E78.00 Pure hypercholesterolemia, unspecified; I10 Essential (primary) hypertension; Z88.5 Allergy status to narcotic agent; Z88.6 Allergy status to analgesic agent; Z79.82 Long term (current) use of aspirin
CPT/HCPCS: 83735; 84100; 93005; 93306; 99285; 36415-L1; 36415-TC; 71045-TC

== ENCOUNTER → 2020-09-25 | Outpatient (CLI) | payer MEDICARE, OTHER ==
[~2020-09-25] MED LIST changes: -CARV12 PO; +CARV25 PO; -NIFE-64 PO
[2020-09-25 10:54] LABS: BASOPHILS % (AUTO) 1.1 % (0.0-2.0); EOSINOPHILS % (AUTO) 6.2 % (1.0-6.0); HEMATOCRIT 38.9 % (36-46); HEMOGLOBIN 12.7 g/dL (12.0-16.0); LYMPHOCYTES # (AUTO) 1.6 K/uL (1.0-4.8); LYMPHOCYTES % (AUTO) 30.7 % (22.0-44.0); MEAN CORPUSCULAR HEMOGLOBIN 31.6 pg (26.0-34.0); MEAN CORPUSCULAR HGB CONC 32.7 G/dL (31.0-37.0); MEAN CORPUSCULAR VOLUME 97 fL (80-100); MONOCYTES # (AUTO) 0.6 K/uL (0.1-1.0); MONOCYTES % (AUTO) 10.4 % (2.0-9.0); NEUTROPHILS # (AUTO) 2.8 K/uL (1.8-7.7); NEUTROPHILS % (AUTO) 51.6 % (40.0-70.0); PLATELET COUNT (AUTO) 206 K/uL (150-450); RED BLOOD CELL COUNT(AUTO) 4.03 MIL/uL (4.00-5.20); RED CELL DISTRIBUTION WIDTH 14.5 % (11.5-14.5)
[2020-09-25 11:18] LABS: HEMOGLOBIN A1C 6.3 % (3.8-5.6)
[2020-09-25 11:34] LABS: ALBUMIN 3.3 g/dL (3.4-5.0); CALCIUM, TOTAL 9.2 mg/dL (8.8-10.5); CHOL/HDL RATIO 2.2 (3.9-5.7); POTASSIUM 4.1 mmol/L (3.5-5.1); THYROID STIMULATING HORMONE 1.84 uIU/mL (0.36-3.74); TOTAL PROTEIN, SERUM 6.6 g/dL (6.4-8.2)
== END | disposition home or self-care (01) ==
LOC: LABPV 10:07
PROVIDERS: ATTEND Internal Medicine
DX: E11.69 Type 2 diabetes mellitus with other specified complication (principal); E78.5 Hyperlipidemia, unspecified; E03.9 Hypothyroidism, unspecified; D72.829 Elevated white blood cell count, unspecified
CPT/HCPCS: 82043; 82570; 83036; 84443

== ENCOUNTER 2020-12-17 09:52 | Emergency (ER) | payer MEDICARE, OTHER ==
[~2020-12-17] VITALS: Ht 162.6 cm; Wt 75.0 kg
[2020-12-17 10:10] LABS: GLUCOSE,POINT OF CARE 132 MG/DL (70-110)
[2020-12-17] MEDS ORDERED: DRON400T7 PO (10:11)
[2020-12-17] MEDS ORDERED: VERA120T90 PO (10:11)
[2020-12-17 11:09] LABS: BASOPHILS % (AUTO) 0.8 % (0.0-2.0); EOSINOPHILS % (AUTO) 5.8 % (1.0-6.0); HEMATOCRIT 41.9 % (36-46); HEMOGLOBIN 13.8 g/dL (12.0-16.0); LYMPHOCYTES # (AUTO) 1.7 K/uL (1.0-4.8); LYMPHOCYTES % (AUTO) 26.3 % (22.0-44.0); MEAN CORPUSCULAR HEMOGLOBIN 31.5 pg (26.0-34.0); MEAN CORPUSCULAR HGB CONC 32.8 G/dL (31.0-37.0); MEAN CORPUSCULAR VOLUME 96 fL (80-100); MONOCYTES # (AUTO) 0.7 K/uL (0.1-1.0); MONOCYTES % (AUTO) 11.3 % (2.0-9.0); NEUTROPHILS # (AUTO) 3.5 K/uL (1.8-7.7); NEUTROPHILS % (AUTO) 55.8 % (40.0-70.0); PLATELET COUNT (AUTO) 257 K/uL (150-450); RED BLOOD CELL COUNT(AUTO) 4.37 MIL/uL (4.00-5.20); RED CELL DISTRIBUTION WIDTH 13.9 % (11.5-14.5)
[2020-12-17 11:16] LABS: CALCIUM, TOTAL 9.6 mg/dL (8.8-10.5); CREATININE 1.18 mg/dL (0.60-1.30); POTASSIUM 4.1 mmol/L (3.5-5.1)
[2020-12-17 11:22] LABS: ALBUMIN 3.3 g/dL (3.4-5.0); BILIRUBIN,TOTAL 0.9 mg/dL (0.1-1.0); TOTAL PROTEIN, SERUM 6.8 g/dL (6.4-8.2)
[2020-12-17 11:45] LABS: INR 1.1 (0.9-1.1); PROTHROMBIN TIME 11.3 SEC (9.4-11.6)
[2020-12-17 13:00] VITALS: BP 132/91
== END 2020-12-17 13:45 | disposition home or self-care (01) ==
LOC: EMS 09:54
DX: N93.8 Other specified abnormal uterine and vaginal bleeding (principal); I10 Essential (primary) hypertension; E11.9 Type 2 diabetes mellitus without complications; I48.91 Unspecified atrial fibrillation; E78.00 Pure hypercholesterolemia, unspecified; Z88.8 Allergy status to other drugs, medicaments and biological substances; Z79.899 Other long term (current) drug therapy
CPT/HCPCS: 76830; 76856; 80053; 82962; 85025; 85610; 85730; 99284

== ENCOUNTER → 2021-07-08 | Outpatient (CLI) | payer MEDICARE, OTHER ==
[~2021-07-08] MED LIST changes: -CARV25 PO; +DRON400T7 PO; -NIFE30TA5 PO; +VERA-25 PO
[2021-07-08 15:00] LABS: APPEARANCE,URINE CLOUDY (CLEAR); BILIRUBIN,URINE NEGATIVE (NEGATIVE); GLUCOSE, URINE (UA) NEGATIVE (NEGATIVE); KETONES,URINE NEGATIVE (NEGATIVE); LEUKOCYTE ESTERASE ,URINE MODERATE (NEGATIVE); NITRATE,URINE NEGATIVE (NEGATIVE); OCCULT BLOOD,URINE LARGE (NEGATIVE); PH,URINE 5.5 (5.0-8.0); PROTEIN,URINE SEE CONFIRM (NEGATIVE); UROBILINOGEN,URINE 0.2 mg/dL (<=1.0)
[2021-07-08 16:26] LABS: SULFOSALICYLIC ACID,URINE 2+ (Negative)
== END | disposition home or self-care (01) ==
LOC: LABMN 13:49
PROVIDERS: ATTEND Internal Medicine
DX: R41.0 Disorientation, unspecified (principal)
CPT/HCPCS: 81002; 87086

== ENCOUNTER → 2021-07-16 | Outpatient (CLI) | payer MEDICARE, OTHER ==
[2021-07-16 16:06] LABS: APPEARANCE,URINE CLOUDY (CLEAR); BILIRUBIN,URINE NEGATIVE (NEGATIVE); GLUCOSE, URINE (UA) NEGATIVE (NEGATIVE); KETONES,URINE TRACE mg/dL (NEGATIVE); LEUKOCYTE ESTERASE ,URINE MODERATE (NEGATIVE); NITRATE,URINE NEGATIVE (NEGATIVE); OCCULT BLOOD,URINE LARGE (NEGATIVE); PH,URINE 5.5 (5.0-8.0); PROTEIN,URINE SEE CONFIRM (NEGATIVE); UROBILINOGEN,URINE 0.2 mg/dL (<=1.0)
[2021-07-16 16:14] LABS: SULFOSALICYLIC ACID,URINE 2+ (Negative)
[2021-07-16 16:15] LABS: BACTERIA,URINE Moderate /HPF (None Seen)
== END | disposition home or self-care (01) ==
LOC: LABMN 14:23
PROVIDERS: ATTEND Internal Medicine
DX: N39.0 Urinary tract infection, site not specified (principal)
CPT/HCPCS: 81001; 81002; 87086

== ENCOUNTER → 2021-08-19 | Outpatient (CLI) | payer MEDICARE, OTHER ==
[2021-08-19 15:13] LABS: BASOPHILS % (AUTO) 0.9 % (0.0-2.0); EOSINOPHILS % (AUTO) 6.1 % (1.0-6.0); HEMATOCRIT 38.4 % (36-46); HEMOGLOBIN 12.7 g/dL (12.0-16.0); LYMPHOCYTES % (AUTO) 35.7 % (22.0-44.0); MEAN CORPUSCULAR HEMOGLOBIN 31.6 pg (26.0-34.0); MEAN CORPUSCULAR VOLUME 96 fL (80-100); MONOCYTES # (AUTO) 0.6 K/uL (0.1-1.0); MONOCYTES % (AUTO) 9.9 % (2.0-9.0); NEUTROPHILS # (AUTO) 2.6 K/uL (1.8-7.7); NEUTROPHILS % (AUTO) 47.4 % (40.0-70.0); PLATELET COUNT (AUTO) 199 K/uL (150-450); RED BLOOD CELL COUNT(AUTO) 4.01 MIL/uL (4.00-5.20); RED CELL DISTRIBUTION WIDTH 14.2 % (11.5-14.5)
[2021-08-19 15:50] LABS: HEMOGLOBIN A1C 5.7 % (3.8-5.6)
[2021-08-19 15:52] LABS: ALBUMIN 3.7 g/dL (3.4-5.0); BILIRUBIN,TOTAL 0.8 mg/dL (0.1-1.0); CALCIUM, TOTAL 9.6 mg/dL (8.8-10.5); CHOL/HDL RATIO 2.1 (3.9-5.7); CREATININE 0.98 mg/dL (0.60-1.30); POTASSIUM 4.1 mmol/L (3.5-5.1); THYROID STIMULATING HORMONE 1.41 uIU/mL (0.36-3.74); TOTAL PROTEIN, SERUM 7.3 g/dL (6.4-8.2)
== END | disposition home or self-care (01) ==
LOC: LABMN 14:25
PROVIDERS: ATTEND Internal Medicine
DX: E78.5 Hyperlipidemia, unspecified (principal); E11.65 Type 2 diabetes mellitus with hyperglycemia; I48.91 Unspecified atrial fibrillation; D72.829 Elevated white blood cell count, unspecified
CPT/HCPCS: 80053; 80061; 82043; 82570; 83036; 84443; 85025

== ENCOUNTER 2021-12-08 14:28 | Emergency (ER) | payer MEDICARE, OTHER ==
[~2021-12-08] VITALS: Ht 162.6 cm; Wt 75.0 kg
[~2021-12-08 14:28] MED LIST changes: +DRON400T6 PO; -DRON400T7 PO
[2021-12-08] MEDS ORDERED: ACETAMINOPHEN 325 MG TABLET PO ONE (15:15)
[2021-12-08] MEDS ORDERED: LIDOCAINE 5% TRANSDERMAL PATCH TD ONE (15:15)
[2021-12-08 17:13] VITALS: BP 128/54
[2021-12-08] MEDS ORDERED: LIDO1ADH23 TP (17:42)
== END 2021-12-08 17:50 | disposition home or self-care (01) ==
LOC: EMS 14:37
DX: M54.50 Low back pain, unspecified (principal); I48.91 Unspecified atrial fibrillation; M19.90 Unspecified osteoarthritis, unspecified site; E11.9 Type 2 diabetes mellitus without complications; E78.00 Pure hypercholesterolemia, unspecified; I10 Essential (primary) hypertension; I25.10 Atherosclerotic heart disease of native coronary artery without angina pectoris; E78.5 Hyperlipidemia, unspecified; Z86.79 Personal history of other diseases of the circulatory system; Z98.890 Other specified postprocedural states; Z88.8 Allergy status to other drugs, medicaments and biological substances; Z96.89 Presence of other specified functional implants
CPT/HCPCS: 72110; 73502; 99284

== ENCOUNTER → 2022-07-30 | Outpatient (CLI) | payer MEDICARE, OTHER, MEDICAID ==
[~2022-07-30] MED LIST changes: +LIDO1ADH23 TP
[2022-07-30 13:18] LABS: BASOPHILS % (AUTO) 0.5 % (0.0-2.0); HEMATOCRIT 38.5 % (36-46); HEMOGLOBIN 12.8 g/dL (12.0-16.0); LYMPHOCYTES # (AUTO) 1.8 K/uL (1.0-4.8); LYMPHOCYTES % (AUTO) 24.9 % (22.0-44.0); MEAN CORPUSCULAR HGB CONC 33.2 G/dL (31.0-37.0); MEAN CORPUSCULAR VOLUME 100 fL (80-100); MONOCYTES # (AUTO) 0.7 K/uL (0.1-1.0); NEUTROPHILS # (AUTO) 4.6 K/uL (1.8-7.7); NEUTROPHILS % (AUTO) 63.6 % (40.0-70.0); PLATELET COUNT (AUTO) 172 K/uL (150-450); RED BLOOD CELL COUNT(AUTO) 3.87 MIL/uL (4.00-5.20)
[2022-07-30 13:37] LABS: ALBUMIN 3.3 g/dL (3.4-5.0); BILIRUBIN,TOTAL 0.9 mg/dL (0.1-1.0); CALCIUM, TOTAL 9.3 mg/dL (8.8-10.5); CHOL/HDL RATIO 2.2 (3.9-5.7); CREATININE 0.98 mg/dL (0.60-1.30); POTASSIUM 4.6 mmol/L (3.5-5.1); THYROID STIMULATING HORMONE 1.83 uIU/mL (0.36-3.74)
[2022-07-30 14:04] LABS: HEMOGLOBIN A1C 6.8 % (3.8-5.6)
== END | disposition home or self-care (01) ==
LOC: LABMN 12:37
PROVIDERS: ATTEND Internal Medicine
DX: E11.69 Type 2 diabetes mellitus with other specified complication (principal); I48.91 Unspecified atrial fibrillation; E78.5 Hyperlipidemia, unspecified
CPT/HCPCS: 80053; 80061; 82043; 82570; 83036; 84443; 85025

== ENCOUNTER 2023-02-09 12:17 | Emergency (ER) | payer MEDICARE, OTHER ==
[~2023-02-09] VITALS: Ht 157.5 cm; Wt 66.4 kg
[~2023-02-09 12:17] MED LIST changes: -ISOS30TA92 PO; -TELM40 PO; -VERA-25 PO
[2023-02-09 12:22] VITALS: TEMP 97.8
[2023-02-09 13:00] LABS: BASOPHILS % (AUTO) 0.8 % (0.0-2.0); EOSINOPHILS % (AUTO) 0.6 % (1.0-6.0); HEMATOCRIT 39.1 % (36-46); HEMOGLOBIN 13.2 g/dL (12.0-16.0); LYMPHOCYTES # (AUTO) 1.4 K/uL (1.0-4.8); LYMPHOCYTES % (AUTO) 18.9 % (22.0-44.0); MEAN CORPUSCULAR HEMOGLOBIN 33.6 pg (26.0-34.0); MEAN CORPUSCULAR HGB CONC 33.7 G/dL (31.0-37.0); MEAN CORPUSCULAR VOLUME 100 fL (80-100); MONOCYTES # (AUTO) 0.8 K/uL (0.1-1.0); MONOCYTES % (AUTO) 11.2 % (2.0-9.0); NEUTROPHILS # (AUTO) 4.9 K/uL (1.8-7.7); NEUTROPHILS % (AUTO) 68.5 % (40.0-70.0); PLATELET COUNT (AUTO) 239 K/uL (150-450); RED BLOOD CELL COUNT(AUTO) 3.92 MIL/uL (4.00-5.20); RED CELL DISTRIBUTION WIDTH 14.9 % (11.5-14.5)
[2023-02-09 13:08] LABS: ANION GAP 8 mmol/L (8-16); CALCIUM, TOTAL 9.2 mg/dL (8.8-10.5); CARBON DIOXIDE 25 mmol/L (22-29); CHLORIDE 102 mmol/L (98-107); CREATININE 0.78 mg/dL (0.60-1.30); GLOMERULAR FILTR. RATE CALC > 60 mL/min (>60); GLUCOSE,RANDOM 177 mg/dL (70-110); POTASSIUM 3.8 mmol/L (3.5-5.1); SODIUM SERUM 135 mmol/L (136-145)
[2023-02-09 13:15] LABS: ALANINE AMINOTRANSFERASE 27 U/L (12-78); ALBUMIN 2.9 g/dL (3.4-5.0); ALKALINE PHOSPHATASE 53 U/L (46-116); ASPARTATE AMINOTRANSFERASE 21 U/L (15-37); BILIRUBIN,TOTAL 1.3 mg/dL (0.1-1.0); CREATINE KINASE, TOTAL ONLY 47 U/L (26-192); TOTAL PROTEIN, SERUM 5.6 g/dL (6.4-8.2)
[2023-02-09 13:21] LABS: B-TYPE NATRIURETIC PEPTIDE 715 pg/mL (0-100)
[2023-02-09] MEDS ORDERED: SODIUM CHLORIDE 0.9% 1,000 ML IV ONE (14:45)
[2023-02-09 17:03] LABS: APPEARANCE,URINE CLEAR (CLEAR); BILIRUBIN,URINE NEGATIVE (NEGATIVE); GLUCOSE, URINE (UA) NEGATIVE (NEGATIVE); KETONES,URINE NEGATIVE (NEGATIVE); LEUKOCYTE ESTERASE ,URINE NEGATIVE (NEGATIVE); NITRATE,URINE NEGATIVE (NEGATIVE); OCCULT BLOOD,URINE NEGATIVE (NEGATIVE); PH,URINE 6.5 (5.0-8.0); PROTEIN,URINE TRACE mg/dL (NEGATIVE); SPECIFIC GRAVITIY, URINE 1.007 (1.003-1.030); UROBILINOGEN,URINE <=1.0 mg/dL (<=1.0)
[2023-02-09 20:40] VITALS: BP 159/66; PULSE 66; RESP 15
== END 2023-02-09 21:44 | disposition home or self-care (01) ==
LOC: EMS 12:18
DX: E86.0 Dehydration (principal); R53.1 Weakness; I10 Essential (primary) hypertension; E11.9 Type 2 diabetes mellitus without complications; E78.00 Pure hypercholesterolemia, unspecified; I48.91 Unspecified atrial fibrillation; Z88.8 Allergy status to other drugs, medicaments and biological substances; Z79.82 Long term (current) use of aspirin; Z79.899 Other long term (current) drug therapy
CPT/HCPCS: 99285; 96360; 96361; 70450; 71045; 80053; 81003; 82550; 82962; 83880; 84484; 85025; 36415; 93005; J7030